=== PATIENT | male | born 1950 | race African-American/Black ===

== ENCOUNTER 2021-06-18 23:17 | Inpatient (IN) | payer MEDICARE, MEDICAID ==
[~2021-06-18] VITALS: Ht 193 cm; Wt 72.1 kg
[~2021-06-18 23:17] MED LIST: ASPI-1450 PO; CHOL100018 PO; DOXA2TAB PO; DULO30CA89 PO; RISP3TAB35 PO; TIZA4TAB6 PO
[2021-06-18] MEDS ORDERED: ARIP2TAB27 PO (23:38)
[2021-06-18] MEDS ORDERED: ZOLP-280 PO (23:38)
[2021-06-19 00:19] LABS: BASOPHILS % (AUTO) 0.5 % (0.0-2.0); EOSINOPHILS % (AUTO) 1.2 % (1.0-6.0); HEMATOCRIT 40.9 % (41-53); HEMOGLOBIN 13.7 g/dL (13.5-17.5); LYMPHOCYTES # (AUTO) 1.6 K/uL (1.0-4.8); LYMPHOCYTES % (AUTO) 20.7 % (22.0-44.0); MEAN CORPUSCULAR HGB CONC 33.4 G/dL (31.0-37.0); MEAN CORPUSCULAR VOLUME 93 fL (80-100); MONOCYTES # (AUTO) 0.8 K/uL (0.1-1.0); MONOCYTES % (AUTO) 10.2 % (2.0-9.0); NEUTROPHILS # (AUTO) 5.3 K/uL (1.8-7.7); NEUTROPHILS % (AUTO) 67.4 % (40.0-70.0); PLATELET COUNT (AUTO) 340 K/uL (150-450); RED BLOOD CELL COUNT(AUTO) 4.41 MIL/uL (4.50-5.90); RED CELL DISTRIBUTION WIDTH 13.3 % (11.5-14.5)
[2021-06-19 00:26] LABS: ANION GAP 9 mmol/L (8-16); CALCIUM, TOTAL 10.6 mg/dL (8.8-10.5); CARBON DIOXIDE 34 mmol/L (22-29); CHLORIDE 105 mmol/L (98-107); CREATININE 1.19 mg/dL (0.60-1.30); GLOMERULAR FILTR. RATE CALC > 60 mL/min (>60); GLUCOSE,RANDOM 99 mg/dL (70-110); POTASSIUM 3.4 mmol/L (3.5-5.1); SODIUM SERUM 148 mmol/L (136-145); UREA NITROGEN, BLOOD 10 mg/dL (7-18)
[2021-06-19 00:33] LABS: ALANINE AMINOTRANSFERASE 16 U/L (12-78); ALBUMIN 4.2 g/dL (3.4-5.0); ALKALINE PHOSPHATASE 100 U/L (46-116); ASPARTATE AMINOTRANSFERASE 24 U/L (15-37); BILIRUBIN,TOTAL 0.3 mg/dL (0.1-1.0)
[2021-06-19] MEDS ORDERED: LORazepam 2 MG TABLET PO PRN ×2 (00:45→20:30)
[2021-06-19 00:50] LABS: AMPHET/METH SCREEN,URINE POSITIVE (NEGATIVE); BARBITURATE SCREEN, URINE NEGATIVE (NEGATIVE); BENZODIAZEPINES SCREEN,URINE NEGATIVE (NEGATIVE); CANNABINOID SCREEN,URINE POSITIVE (NEGATIVE); COCAINE SCREEN,URINE POSITIVE (NEGATIVE); METHADONE SCREEN, URINE NEGATIVE (NEGATIVE); OPIATE SCREEN,URINE NEGATIVE (NEGATIVE); PHENCYCLIDINE SCREEN,URINE NEGATIVE (NEGATIVE)
[2021-06-19 01:28] LABS: APPEARANCE,URINE CLEAR (CLEAR); GLUCOSE, URINE (UA) NEGATIVE (NEGATIVE); KETONES,URINE TRACE mg/dL (NEGATIVE); LEUKOCYTE ESTERASE ,URINE TRACE (NEGATIVE); NITRATE,URINE NEGATIVE (NEGATIVE); OCCULT BLOOD,URINE NEGATIVE (NEGATIVE); PH,URINE 5.5 (5.0-8.0); PROTEIN,URINE SEE CONFIRM (NEGATIVE)
[2021-06-19 01:35] LABS: BILIRUBIN,URINE PRELIM. POSITIVE (NEGATIVE)
[2021-06-19 01:44] LABS: SULFOSALICYLIC ACID,URINE 2+ (Negative)
[2021-06-19 01:46] LABS: BACTERIA,URINE Moderate /HPF (None Seen); RBC,URINE 0-2 /HPF (0-2)
[2021-06-19 01:46] LABS: COVID AG,FIA SOURCE NASOPHARYNGEAL
[2021-06-19 09:40] VITALS: BP 111/72
[2021-06-19] MEDS ORDERED: POTASSIUM CHLORIDE 20 MEQ ER TABLET PO ONE (12:45)
[2021-06-19] MEDS ORDERED: BACL20TA PO (12:58)
[2021-06-19] MEDS ORDERED: ARIP5TAB37 PO (12:58)
[2021-06-19] MEDS ORDERED: CHOL500013 PO (12:58)
[2021-06-19 16:30] VITALS: BP 124/65
[2021-06-19] MEDS ORDERED: PALIPERIDONE PALMITATE 234 MG/1.5 ML SYRINGE IM ONE (20:30)
[2021-06-19] MEDS ORDERED: PROMETHAZINE HCL 25 MG TABLET PO PRN (20:30)
[2021-06-19] MEDS ORDERED: MAGNESIUM HYDROXIDE SUSPENSION 30 ML UDCUP PO PRN (20:30)
[2021-06-19] MEDS ORDERED: CYANOCOBALAMIN 1,000 MCG/ML VIAL IM ONE (20:30)
[2021-06-19] MEDS ORDERED: HydrOXYzine PAMOATE 50 MG CAPSULE PO PRN (20:30)
[2021-06-19] MEDS ORDERED: TUBERCULIN, PURIFIED PROTEIN DERIVATIVE 5 TU/0.1 ML SYRINGE ID ONE (20:30)
[2021-06-19] MEDS ORDERED: OLANZapine 5 MG RAPDIS TABLET PO PRN (20:30)
[2021-06-19] MEDS ORDERED: MAG HYDROX/AL HYDROX/SIMETH ES 30 ML SUSPENSION UDCUP PO PRN (20:30)
[2021-06-19] MEDS ORDERED: LOPERAMIDE HCL 2 MG CAPSULE PO PRN ×2 (20:30)
[2021-06-19 21:00] VITALS: BP 120/70
[2021-06-19] MEDS: OLANZapine 5 MG RAPDIS TABLET PO SCH (21:00)
[2021-06-19] MEDS ORDERED: DIVALPROEX SODIUM 500 MG ER TABLET PO SCH (21:00)
[2021-06-19] MEDS: MELATONIN 5 MG TABLET PO SCH (21:00)
[2021-06-19] MEDS: GABAPENTIN 100 MG CAPSULE PO SCH (21:00)
[2021-06-20] VITALS (9 sets, daily range): BP systolic 104–118; BP diastolic 57–80
[2021-06-20] MEDS ORDERED: LORazepam 2 MG TABLET PO PRN (07:00)
[2021-06-20 08:05] LABS: HEMOGLOBIN A1C 5.7 % (3.8-5.6)
[2021-06-20 08:10] LABS: ALANINE AMINOTRANSFERASE 17 U/L (12-78); ALBUMIN 3.6 g/dL (3.4-5.0); ALKALINE PHOSPHATASE 91 U/L (46-116); ANION GAP 8 mmol/L (8-16); ASPARTATE AMINOTRANSFERASE 18 U/L (15-37); BILIRUBIN,TOTAL 0.4 mg/dL (0.1-1.0); CALCIUM, TOTAL 8.6 mg/dL (8.8-10.5); CARBON DIOXIDE 30 mmol/L (22-29); CHLORIDE 106 mmol/L (98-107); CHOLESTEROL 147 mg/dL (131-200); CREATININE 0.89 mg/dL (0.60-1.30); FREE T4 (FREE THYROXINE) 0.87 ng/dL (0.76-1.46); GLOMERULAR FILTR. RATE CALC > 60 mL/min (>60); GLUCOSE,RANDOM 105 mg/dL (70-110); HDL CHOLESTEROL 37 mg/dL (40-60); LDL CHOL (CALC.) 97 mg/dL (0-130); POTASSIUM 3.9 mmol/L (3.5-5.1); SODIUM SERUM 144 mmol/L (136-145); THYROID STIMULATING HORMONE 0.62 uIU/mL (0.36-3.74); TOTAL PROTEIN, SERUM 6.4 g/dL (6.4-8.2); TRIGLYCERIDES 64 mg/dL (15-150); UREA NITROGEN, BLOOD 11 mg/dL (7-18)
[2021-06-20] MEDS: NALTREXONE HCL 50 MG TABLET PO SCH (09:33)
[2021-06-20] MEDS: MULTIVITAMINS WITH MINERALS, THERAPEUTIC TABLET PO SCH (09:33)
[2021-06-20] MEDS: OMEGA-3/DHA/EPA/FISH OIL 1,000 MG CAPSULE PO SCH (09:33)
[2021-06-20] MEDS: LORazepam 2 MG TABLET PO SCH ×4 (09:34→20:05)
[2021-06-20] MEDS: FOLIC ACID 1 MG TABLET PO SCH (09:35)
[2021-06-20] MEDS: GABAPENTIN 100 MG CAPSULE PO SCH ×4 (09:35→20:05)
[2021-06-20] MEDS: THIAMINE 100 MG TABLET PO SCH ×2 (09:35→17:03)
[2021-06-20] MEDS: DULoxetine HCL 20 MG CAPSULE PO SCH (09:35)
[2021-06-20] MEDS: OLANZapine 5 MG RAPDIS TABLET PO SCH (20:05)
[2021-06-20] MEDS: MELATONIN 5 MG TABLET PO SCH (20:05)
[2021-06-21 00:18] VITALS: BP 107/59
[2021-06-21 06:41] LABS: MAGNESIUM 1.9 mg/dL (1.80-2.40); PHOSPHORUS 3.5 mg/dL (2.5-4.9)
[2021-06-21] MEDS: THIAMINE 100 MG TABLET PO SCH ×2 (09:04→16:58)
[2021-06-21] MEDS: LORazepam 2 MG TABLET PO SCH ×4 (09:04→21:03)
[2021-06-21] MEDS: OMEGA-3/DHA/EPA/FISH OIL 1,000 MG CAPSULE PO SCH (09:04)
[2021-06-21] MEDS: MULTIVITAMINS WITH MINERALS, THERAPEUTIC TABLET PO SCH (09:05)
[2021-06-21] MEDS: NALTREXONE HCL 50 MG TABLET PO SCH (09:05)
[2021-06-21] MEDS: FOLIC ACID 1 MG TABLET PO SCH (09:05)
[2021-06-21] MEDS: DULoxetine HCL 20 MG CAPSULE PO SCH (09:06)
[2021-06-21] MEDS: GABAPENTIN 100 MG CAPSULE PO SCH ×4 (09:07→21:03)
[2021-06-21] MEDS ORDERED: PALIPERIDONE PALMITATE 156 MG/ML SYRINGE IM ONE (10:30)
[2021-06-21 16:00] VITALS: BP 112/61
[2021-06-21] MEDS: MELATONIN 5 MG TABLET PO SCH (21:03)
[2021-06-21] MEDS: OLANZapine 5 MG RAPDIS TABLET PO SCH (21:03)
[2021-06-22 03:25] VITALS: BP 124/74
[2021-06-22] MEDS ORDERED: LORazepam 1 MG TABLET PO PRN (07:00)
[2021-06-22 08:40] VITALS: BP 118/72
[2021-06-22] MEDS ORDERED: DULoxetine HCL 30 MG CAPSULE PO SCH (09:00)
[2021-06-22] MEDS: GABAPENTIN 100 MG CAPSULE PO SCH ×4 (09:56→21:00)
[2021-06-22] MEDS: NALTREXONE HCL 50 MG TABLET PO SCH (09:56)
[2021-06-22] MEDS: OMEGA-3/DHA/EPA/FISH OIL 1,000 MG CAPSULE PO SCH (09:56)
[2021-06-22] MEDS: MULTIVITAMINS WITH MINERALS, THERAPEUTIC TABLET PO SCH (09:57)
[2021-06-22] MEDS: DULoxetine HCL 20 MG CAPSULE PO SCH (09:57)
[2021-06-22] MEDS: THIAMINE 100 MG TABLET PO SCH ×2 (09:57→17:20)
[2021-06-22] MEDS: LORazepam 1 MG TABLET PO SCH ×4 (09:57→21:00)
[2021-06-22] MEDS: FOLIC ACID 1 MG TABLET PO SCH (09:58)
[2021-06-22 16:38] VITALS: BP 112/69
[2021-06-22 16:39] VITALS: BP 112/69
[2021-06-22] MEDS: OLANZapine 5 MG RAPDIS TABLET PO SCH (21:00)
[2021-06-22] MEDS: MELATONIN 5 MG TABLET PO SCH (21:00)
[2021-06-23 01:56] VITALS: BP 142/82
[2021-06-23 08:00] VITALS: BP 116/67
[2021-06-23] MEDS: OMEGA-3/DHA/EPA/FISH OIL 1,000 MG CAPSULE PO SCH (08:08)
[2021-06-23] MEDS: MULTIVITAMINS WITH MINERALS, THERAPEUTIC TABLET PO SCH (08:08)
[2021-06-23] MEDS: GABAPENTIN 100 MG CAPSULE PO SCH ×4 (08:08→20:32)
[2021-06-23] MEDS: NALTREXONE HCL 50 MG TABLET PO SCH (08:08)
[2021-06-23] MEDS: LORazepam 1 MG TABLET PO PRN ×2 (08:09→12:51)
[2021-06-23] MEDS: THIAMINE 100 MG TABLET PO SCH ×2 (08:13→16:32)
[2021-06-23] MEDS: DULoxetine HCL 20 MG CAPSULE PO SCH (08:13)
[2021-06-23] MEDS: FOLIC ACID 1 MG TABLET PO SCH (08:13)
[2021-06-23] MEDS ORDERED: PALIPERIDONE PALMITATE 156 MG/ML SYRINGE IM ONE (09:00)
[2021-06-23] MEDS: NICOTINE 21 MG/24 HOUR PATCH TD PRN (14:18)
[2021-06-23 16:00] VITALS: BP 123/73
[2021-06-23] MEDS: OLANZapine 5 MG RAPDIS TABLET PO SCH (20:32)
[2021-06-23] MEDS: MELATONIN 5 MG TABLET PO SCH (20:32)
[2021-06-23] MEDS: ZOLPIDEM TARTRATE 10 MG TABLET PO PRN (23:09)
[2021-06-24 04:08] VITALS: BP 106/78
[2021-06-24] MEDS: ACETAMINOPHEN 325 MG TABLET PO PRN (04:11)
[2021-06-24] MEDS: OMEGA-3/DHA/EPA/FISH OIL 1,000 MG CAPSULE PO SCH (07:57)
[2021-06-24] MEDS: DULoxetine HCL 20 MG CAPSULE PO SCH (07:57)
[2021-06-24] MEDS: FOLIC ACID 1 MG TABLET PO SCH (07:57)
[2021-06-24] MEDS: NALTREXONE HCL 50 MG TABLET PO SCH (07:57)
[2021-06-24] MEDS: THIAMINE 100 MG TABLET PO SCH ×2 (07:57→16:14)
[2021-06-24] MEDS: GABAPENTIN 100 MG CAPSULE PO SCH ×4 (07:57→20:06)
[2021-06-24] MEDS: MULTIVITAMINS WITH MINERALS, THERAPEUTIC TABLET PO SCH (07:57)
[2021-06-24 08:00] VITALS: BP 113/76
[2021-06-24] MEDS: NICOTINE 21 MG/24 HOUR PATCH TD PRN (16:15)
[2021-06-24 16:30] VITALS: BP 107/67
[2021-06-24] MEDS: OLANZapine 5 MG RAPDIS TABLET PO SCH (20:05)
[2021-06-24] MEDS: MELATONIN 5 MG TABLET PO SCH (20:06)
[2021-06-24] MEDS: ZOLPIDEM TARTRATE 10 MG TABLET PO PRN (20:44)
[2021-06-25] MEDS: ACETAMINOPHEN 325 MG TABLET PO PRN ×2 (00:48→06:20)
[2021-06-25 00:49] VITALS: BP 112/63
[2021-06-25] MEDS: DULoxetine HCL 20 MG CAPSULE PO SCH (08:40)
[2021-06-25] MEDS: FOLIC ACID 1 MG TABLET PO SCH (08:40)
[2021-06-25] MEDS: MULTIVITAMINS WITH MINERALS, THERAPEUTIC TABLET PO SCH (08:40)
[2021-06-25] MEDS: GABAPENTIN 100 MG CAPSULE PO SCH ×3 (08:41→16:39)
[2021-06-25] MEDS: OMEGA-3/DHA/EPA/FISH OIL 1,000 MG CAPSULE PO SCH (08:41)
[2021-06-25] MEDS: THIAMINE 100 MG TABLET PO SCH ×2 (08:41→16:40)
[2021-06-25] MEDS: NALTREXONE HCL 50 MG TABLET PO SCH (08:41)
[2021-06-25] MEDS ORDERED: PALIPERIDONE PALMITATE 117 MG/0.75 ML SYRINGE IM ONE (09:00)
[2021-06-25] MEDS: IBUPROFEN 600 MG TABLET PO PRN (14:50)
[2021-06-25 14:51] VITALS: BP 117/74
[2021-06-25] MEDS: GuaiFENesin/D-METHORPHAN [SUGAR-FREE] 200-20MG/10 ML SYRUP UDCUP PO PRN ×2 (14:51→20:10)
[2021-06-25 15:01] LABS: COVID AG,FIA SOURCE NASOPHARYNGEAL
[2021-06-25 16:00] VITALS: BP 117/74
[2021-06-25] MEDS: NICOTINE 21 MG/24 HOUR PATCH TD PRN (16:53)
[2021-06-25] MEDS: MELATONIN 5 MG TABLET PO SCH (20:10)
[2021-06-25] MEDS: OLANZapine 10 MG RAPDIS TABLET PO SCH (20:10)
[2021-06-25] MEDS: GABAPENTIN 300 MG CAPSULE PO SCH (20:10)
[2021-06-26 03:40] VITALS: BP 110/71
[2021-06-26] MEDS: IBUPROFEN 600 MG TABLET PO PRN ×2 (03:44→16:32)
[2021-06-26] MEDS: GuaiFENesin/D-METHORPHAN [SUGAR-FREE] 200-20MG/10 ML SYRUP UDCUP PO PRN ×2 (03:44→16:32)
[2021-06-26 08:00] VITALS: BP 117/62
[2021-06-26] MEDS: FOLIC ACID 1 MG TABLET PO SCH (08:31)
[2021-06-26] MEDS: MULTIVITAMINS WITH MINERALS, THERAPEUTIC TABLET PO SCH (08:31)
[2021-06-26] MEDS: OLANZapine 5 MG RAPDIS TABLET PO PRN ×2 (08:31→12:48)
[2021-06-26] MEDS: OMEGA-3/DHA/EPA/FISH OIL 1,000 MG CAPSULE PO SCH (08:31)
[2021-06-26] MEDS: THIAMINE 100 MG TABLET PO SCH ×2 (08:31→16:52)
[2021-06-26] MEDS: GABAPENTIN 300 MG CAPSULE PO SCH ×4 (08:31→20:44)
[2021-06-26] MEDS: DULoxetine HCL 30 MG CAPSULE PO SCH (08:31)
[2021-06-26] MEDS: NALTREXONE HCL 50 MG TABLET PO SCH (08:31)
[2021-06-26] MEDS: TAMSULOSIN HCL 0.4 MG CAPSULE PO SCH (12:47)
[2021-06-26 16:32] VITALS: BP 113/71
[2021-06-26] MEDS: NICOTINE 21 MG/24 HOUR PATCH TD PRN (16:32)
[2021-06-26 16:41] VITALS: BP 69/71
[2021-06-26] MEDS: MELATONIN 5 MG TABLET PO SCH (20:44)
[2021-06-26] MEDS: OLANZapine 10 MG RAPDIS TABLET PO SCH (20:44)
[2021-06-27] MEDS: ZOLPIDEM TARTRATE 10 MG TABLET PO PRN (02:23)
[2021-06-27] MEDS: GuaiFENesin/D-METHORPHAN [SUGAR-FREE] 200-20MG/10 ML SYRUP UDCUP PO PRN ×4 (02:23→22:31)
[2021-06-27 02:29] VITALS: BP 126/74
[2021-06-27 06:40] VITALS: BP 122/88
[2021-06-27] MEDS: IBUPROFEN 600 MG TABLET PO PRN ×2 (06:42→13:19)
[2021-06-27] MEDS: GABAPENTIN 300 MG CAPSULE PO SCH ×4 (08:17→20:11)
[2021-06-27] MEDS: OMEGA-3/DHA/EPA/FISH OIL 1,000 MG CAPSULE PO SCH (08:17)
[2021-06-27] MEDS: THIAMINE 100 MG TABLET PO SCH ×2 (08:17→16:19)
[2021-06-27] MEDS: MULTIVITAMINS WITH MINERALS, THERAPEUTIC TABLET PO SCH (08:17)
[2021-06-27] MEDS: DULoxetine HCL 30 MG CAPSULE PO SCH (08:17)
[2021-06-27] MEDS: NALTREXONE HCL 50 MG TABLET PO SCH (08:17)
[2021-06-27] MEDS: FOLIC ACID 1 MG TABLET PO SCH (08:17)
[2021-06-27] MEDS: TAMSULOSIN HCL 0.4 MG CAPSULE PO SCH (08:17)
[2021-06-27] MEDS: OLANZapine 5 MG RAPDIS TABLET PO PRN ×2 (08:18→13:19)
[2021-06-27 08:53] VITALS: BP 113/85
[2021-06-27] MEDS: NICOTINE 21 MG/24 HOUR PATCH TD PRN (17:05)
[2021-06-27 17:18] VITALS: BP 114/65
[2021-06-27] MEDS: MELATONIN 5 MG TABLET PO SCH (20:11)
[2021-06-27] MEDS: OLANZapine 10 MG RAPDIS TABLET PO SCH (20:12)
[2021-06-27] MEDS: GABAPENTIN 400 MG CAPSULE PO SCH (21:00)
[2021-06-28] MEDS: IBUPROFEN 600 MG TABLET PO PRN ×3 (02:02→22:45)
[2021-06-28 02:03] VITALS: BP 122/63
[2021-06-28] MEDS: ZOLPIDEM TARTRATE 10 MG TABLET PO PRN (02:20)
[2021-06-28] MEDS: GABAPENTIN 400 MG CAPSULE PO SCH ×4 (09:55→21:42)
[2021-06-28] MEDS: DULoxetine HCL 20 MG CAPSULE PO SCH (09:55)
[2021-06-28] MEDS: FOLIC ACID 1 MG TABLET PO SCH (09:55)
[2021-06-28] MEDS: NALTREXONE HCL 50 MG TABLET PO SCH (09:55)
[2021-06-28] MEDS: OMEGA-3/DHA/EPA/FISH OIL 1,000 MG CAPSULE PO SCH (09:55)
[2021-06-28] MEDS: THIAMINE 100 MG TABLET PO SCH ×2 (09:55→17:40)
[2021-06-28] MEDS: MULTIVITAMINS WITH MINERALS, THERAPEUTIC TABLET PO SCH (09:55)
[2021-06-28] MEDS: TAMSULOSIN HCL 0.4 MG CAPSULE PO SCH (09:55)
[2021-06-28 10:14] VITALS: BP 121/55
[2021-06-28] MEDS: GuaiFENesin/D-METHORPHAN [SUGAR-FREE] 200-20MG/10 ML SYRUP UDCUP PO PRN ×2 (12:00→22:45)
[2021-06-28] MEDS: OLANZapine 5 MG RAPDIS TABLET PO PRN (12:01)
[2021-06-28 16:22] VITALS: BP 126/81
[2021-06-28] MEDS: NICOTINE 21 MG/24 HOUR PATCH TD PRN (18:03)
[2021-06-28] MEDS: OLANZapine 10 MG RAPDIS TABLET PO SCH (21:43)
[2021-06-28] MEDS: MELATONIN 5 MG TABLET PO SCH (21:43)
[2021-06-29 05:39] VITALS: BP 132/70
[2021-06-29] MEDS: FOLIC ACID 1 MG TABLET PO SCH (08:31)
[2021-06-29] MEDS: THIAMINE 100 MG TABLET PO SCH ×2 (08:31→15:51)
[2021-06-29] MEDS: DULoxetine HCL 20 MG CAPSULE PO SCH (08:32)
[2021-06-29] MEDS: OMEGA-3/DHA/EPA/FISH OIL 1,000 MG CAPSULE PO SCH (08:32)
[2021-06-29] MEDS: GABAPENTIN 400 MG CAPSULE PO SCH ×4 (08:32→20:19)
[2021-06-29] MEDS: TAMSULOSIN HCL 0.4 MG CAPSULE PO SCH (08:32)
[2021-06-29] MEDS: MULTIVITAMINS WITH MINERALS, THERAPEUTIC TABLET PO SCH (08:32)
[2021-06-29] MEDS: NALTREXONE HCL 50 MG TABLET PO SCH (08:32)
[2021-06-29 09:12] VITALS: BP 115/73
[2021-06-29] MEDS: GuaiFENesin/D-METHORPHAN [SUGAR-FREE] 200-20MG/10 ML SYRUP UDCUP PO PRN ×2 (09:14→15:59)
[2021-06-29] MEDS: OLANZapine 5 MG RAPDIS TABLET PO PRN (09:15)
[2021-06-29] MEDS: IBUPROFEN 600 MG TABLET PO PRN ×2 (09:15→15:59)
[2021-06-29 15:59] VITALS: BP 130/76
[2021-06-29 16:00] VITALS: BP 130/76
[2021-06-29] MEDS: OLANZapine 5 MG RAPDIS TABLET PO SCH (20:19)
[2021-06-29] MEDS: MELATONIN 5 MG TABLET PO SCH (20:19)
[2021-06-30 05:44] VITALS: BP_SYST 124
[2021-06-30] MEDS: GuaiFENesin/D-METHORPHAN [SUGAR-FREE] 200-20MG/10 ML SYRUP UDCUP PO PRN ×2 (05:44→13:12)
[2021-06-30] MEDS: IBUPROFEN 600 MG TABLET PO PRN (05:44)
[2021-06-30 08:40] VITALS: BP 113/61
[2021-06-30] MEDS: TAMSULOSIN HCL 0.4 MG CAPSULE PO SCH (09:16)
[2021-06-30] MEDS: OMEGA-3/DHA/EPA/FISH OIL 1,000 MG CAPSULE PO SCH (09:16)
[2021-06-30] MEDS: DULoxetine HCL 20 MG CAPSULE PO SCH (09:16)
[2021-06-30] MEDS: MULTIVITAMINS WITH MINERALS, THERAPEUTIC TABLET PO SCH (09:16)
[2021-06-30] MEDS: GABAPENTIN 400 MG CAPSULE PO SCH ×4 (09:16→20:16)
[2021-06-30] MEDS: NALTREXONE HCL 50 MG TABLET PO SCH (09:17)
[2021-06-30 16:00] VITALS: BP 134/70
[2021-06-30] MEDS: OLANZapine 5 MG RAPDIS TABLET PO SCH (20:16)
[2021-06-30] MEDS: MELATONIN 5 MG TABLET PO SCH (20:16)
[2021-07-01 02:19] VITALS: BP 132/76
[2021-07-01] MEDS: ZOLPIDEM TARTRATE 10 MG TABLET PO PRN (02:20)
[2021-07-01] MEDS: IBUPROFEN 600 MG TABLET PO PRN (02:21)
[2021-07-01] MEDS: NALTREXONE HCL 50 MG TABLET PO SCH (08:01)
[2021-07-01] MEDS: DULoxetine HCL 20 MG CAPSULE PO SCH (08:01)
[2021-07-01] MEDS: GABAPENTIN 400 MG CAPSULE PO SCH ×4 (08:01→20:15)
[2021-07-01] MEDS: MULTIVITAMINS WITH MINERALS, THERAPEUTIC TABLET PO SCH (08:01)
[2021-07-01] MEDS: OMEGA-3/DHA/EPA/FISH OIL 1,000 MG CAPSULE PO SCH (08:01)
[2021-07-01] MEDS: TAMSULOSIN HCL 0.4 MG CAPSULE PO SCH (08:01)
[2021-07-01 08:50] VITALS: BP 109/79
[2021-07-01] MEDS: ACETAMINOPHEN 325 MG TABLET PO PRN (09:13)
[2021-07-01] MEDS: NICOTINE 21 MG/24 HOUR PATCH TD PRN (12:07)
[2021-07-01 16:00] VITALS: BP 127/89
[2021-07-01] MEDS: OLANZapine 5 MG RAPDIS TABLET PO SCH (20:15)
[2021-07-01] MEDS: MELATONIN 5 MG TABLET PO SCH (20:15)
[2021-07-02 02:34] VITALS: BP 102/64
[2021-07-02] MEDS: IBUPROFEN 600 MG TABLET PO PRN (02:36)
[2021-07-02] MEDS: GuaiFENesin/D-METHORPHAN [SUGAR-FREE] 200-20MG/10 ML SYRUP UDCUP PO PRN ×2 (02:37→10:58)
[2021-07-02] MEDS: ZOLPIDEM TARTRATE 10 MG TABLET PO PRN (03:18)
[2021-07-02] MEDS: MULTIVITAMINS WITH MINERALS, THERAPEUTIC TABLET PO SCH (08:21)
[2021-07-02] MEDS: DULoxetine HCL 20 MG CAPSULE PO SCH (08:21)
[2021-07-02] MEDS: TAMSULOSIN HCL 0.4 MG CAPSULE PO SCH (08:21)
[2021-07-02] MEDS: OMEGA-3/DHA/EPA/FISH OIL 1,000 MG CAPSULE PO SCH (08:21)
[2021-07-02] MEDS: GABAPENTIN 400 MG CAPSULE PO SCH ×2 (08:21→12:40)
[2021-07-02] MEDS: NALTREXONE HCL 50 MG TABLET PO SCH (08:21)
[2021-07-02 08:33] VITALS: BP 138/88
[2021-07-02] MEDS ORDERED: GABA-1201 PO (11:54)
[2021-07-02] MEDS ORDERED: OLAN5TAB94 PO (11:54)
[2021-07-02] MEDS ORDERED: MELA5TAB40 PO (11:54)
[2021-07-02] MEDS ORDERED: OMEG-135 PO (11:54)
[2021-07-02] MEDS ORDERED: DULO20CA27 PO (11:54)
[2021-07-02] MEDS ORDERED: NALT50TA PO (11:54)
[2021-07-02] MEDS ORDERED: TAMS-13 PO (12:03)
== END 2021-07-02 14:30 | disposition home or self-care (01) | DRG 885 ==
LOC: EMS 23:25 → 3EI 06-19 08:09
PROVIDERS: ADMIT Psychiatry & Neurology Psychiatry; ATTEND Psychiatry & Neurology Psychiatry
DX: F25.9 Schizoaffective disorder, unspecified (principal); N39.0 Urinary tract infection, site not specified; R45.851 Suicidal ideations; F12.90 Cannabis use, unspecified, uncomplicated; F14.90 Cocaine use, unspecified, uncomplicated; F32.A Depression, unspecified; J44.9 Chronic obstructive pulmonary disease, unspecified; Z20.822 Contact with and (suspected) exposure to COVID-19; M47.812 Spondylosis without myelopathy or radiculopathy, cervical region; R45.850 Homicidal ideations; N40.0 Benign prostatic hyperplasia without lower urinary tract symptoms; Z55.9 Problems related to education and literacy, unspecified; Z59.00 Homelessness unspecified; Z87.891 Personal history of nicotine dependence; Z91.19 Patient's noncompliance with other medical treatment and regimen; Z85.46 Personal history of malignant neoplasm of prostate; Z65.3 Problems related to other legal circumstances
CPT/HCPCS: 71045; 71046; 80053; 80061; 81001; 81002; 83036; 83735; 84100; 84439; 84443; 84484; 85025; 85305; 85306; 86592; 87086; 93005; 99285; G0480; Q9967; 36415-L1; 36415-TC

== ENCOUNTER 2021-07-18 21:11 | Inpatient (IN) | payer MEDICARE, MEDICAID ==
[~2021-07-18] VITALS: Ht 190.5 cm; Wt 76.3 kg
[~2021-07-18 21:11] MED LIST changes: -ASPI-1450 PO; -CHOL100018 PO; -DOXA2TAB PO; +DULO20CA27 PO; -DULO30CA89 PO; +GABA-1201 PO; +MELA5TAB40 PO; +NALT50TA PO; +OLAN5TAB94 PO; +OMEG-135 PO; -RISP3TAB35 PO; +TAMS-13 PO; -TIZA4TAB6 PO
[2021-07-18] MEDS ORDERED: CloNIDine HCL 0.1 MG TABLET PO ONE (23:30)
[2021-07-18] MEDS ORDERED: IBUPROFEN 800 MG TABLET PO ONE (23:30)
[2021-07-18 23:43] LABS: BASOPHILS % (AUTO) 0.3 % (0.0-2.0); EOSINOPHILS % (AUTO) 0.5 % (1.0-6.0); HEMATOCRIT 39.2 % (41-53); HEMOGLOBIN 12.8 g/dL (13.5-17.5); LYMPHOCYTES # (AUTO) 1.3 K/uL (1.0-4.8); LYMPHOCYTES % (AUTO) 15.9 % (22.0-44.0); MEAN CORPUSCULAR HEMOGLOBIN 30.6 pg (26.0-34.0); MEAN CORPUSCULAR HGB CONC 32.8 G/dL (31.0-37.0); MEAN CORPUSCULAR VOLUME 93 fL (80-100); MONOCYTES # (AUTO) 0.7 K/uL (0.1-1.0); MONOCYTES % (AUTO) 9.1 % (2.0-9.0); NEUTROPHILS % (AUTO) 74.2 % (40.0-70.0); PLATELET COUNT (AUTO) 298 K/uL (150-450); RED BLOOD CELL COUNT(AUTO) 4.21 MIL/uL (4.50-5.90); RED CELL DISTRIBUTION WIDTH 13.6 % (11.5-14.5)
[2021-07-18 23:46] LABS: COVID AG,FIA SOURCE NASOPHARYNGEAL
[2021-07-18 23:51] LABS: ANION GAP 5 mmol/L (8-16); CALCIUM, TOTAL 8.8 mg/dL (8.8-10.5); CARBON DIOXIDE 32 mmol/L (22-29); CHLORIDE 105 mmol/L (98-107); CREATININE 0.95 mg/dL (0.60-1.30); GLOMERULAR FILTR. RATE CALC > 60 mL/min (>60); GLUCOSE,RANDOM 83 mg/dL (70-110); POTASSIUM 3.7 mmol/L (3.5-5.1); SODIUM SERUM 142 mmol/L (136-145); UREA NITROGEN, BLOOD 15 mg/dL (7-18)
[2021-07-18 23:57] LABS: ALANINE AMINOTRANSFERASE 26 U/L (12-78); ALBUMIN 4.1 g/dL (3.4-5.0); ALKALINE PHOSPHATASE 90 U/L (46-116); ASPARTATE AMINOTRANSFERASE 28 U/L (15-37); BILIRUBIN,TOTAL 0.4 mg/dL (0.1-1.0)
[2021-07-19 03:25] LABS: CHOL/HDL RATIO 3.4 (4.2-7.3); CHOLESTEROL 169 mg/dL (131-200); HDL CHOLESTEROL 50 mg/dL (40-60); LDL CHOL (CALC.) 110 mg/dL (0-130); TRIGLYCERIDES 43 mg/dL (15-150)
[2021-07-19 04:47] VITALS: BP 128/83
[2021-07-19 08:00] VITALS: BP 151/60
[2021-07-19] MEDS ORDERED: TAMSULOSIN HCL 0.4 MG CAPSULE PO SCH (09:00)
[2021-07-19] MEDS ORDERED: MAGNESIUM HYDROXIDE SUSPENSION 30 ML UDCUP PO PRN (09:45)
[2021-07-19] MEDS ORDERED: CloNIDine HCL 0.1 MG TABLET PO PRN (09:45)
[2021-07-19] MEDS ORDERED: OMEPRAZOLE 20 MG CAPSULE PO PRN (09:45)
[2021-07-19] MEDS ORDERED: PETROLATUM,WHITE 28 GM JELLY TP PRN (09:45)
[2021-07-19] MEDS ORDERED: DOCUSATE SODIUM 100 MG CAPSULE PO PRN (09:45)
[2021-07-19] MEDS ORDERED: ACETAMINOPHEN 325 MG TABLET PO PRN (09:45)
[2021-07-19] MEDS ORDERED: BENZOCAINE/MENTHOL LOZENGE PO PRN (09:45)
[2021-07-19] MEDS ORDERED: MAG HYDROX/AL HYDROX/SIMETH ES 30 ML SUSPENSION UDCUP PO PRN (09:45)
[2021-07-19] MEDS ORDERED: LOPERAMIDE HCL 2 MG CAPSULE PO PRN (09:45)
[2021-07-19] MEDS ORDERED: BACITRACIN 28 GM OINTMENT TP PRN (09:45)
[2021-07-19] MEDS ORDERED: ONDANSETRON HCL 4 MG TABLET PO PRN (09:45)
[2021-07-19] MEDS: LORazepam 2 MG TABLET PO PRN (11:16)
[2021-07-19] MEDS: NICOTINE 21 MG/24 HOUR PATCH TD SCH (11:21)
[2021-07-19] MEDS: DULoxetine HCL 60 MG CAPSULE PO SCH (11:22)
[2021-07-19] MEDS ORDERED: NICOTINE 21 MG/24 HOUR PATCH TD SCH (11:30)
[2021-07-19] MEDS ORDERED: PNEUMOCOCCAL VACCINE POLYVALENT 0.5 ML VIAL [PPSV23] IM. ONE (15:00)
[2021-07-19] MEDS ORDERED: INFLUENZA VIRUS VACCINE QVS 2021-22 (6MO+)/PF 60 MCG/0.5 ML SYRINGE IM. ONE (15:00)
[2021-07-19 16:20] VITALS: BP 128/71
[2021-07-19] MEDS: MELATONIN 5 MG TABLET PO SCH (20:02)
[2021-07-20 08:00] VITALS: BP_SYST 75
[2021-07-20] MEDS: NICOTINE 21 MG/24 HOUR PATCH TD SCH (09:29)
[2021-07-20] MEDS: MULTIVITAMINS WITH MINERALS, THERAPEUTIC TABLET PO SCH (09:30)
[2021-07-20] MEDS: DULoxetine HCL 60 MG CAPSULE PO SCH (09:30)
[2021-07-20] MEDS: OMEGA-3/DHA/EPA/FISH OIL 1,000 MG CAPSULE PO SCH (09:30)
[2021-07-20] MEDS: TAMSULOSIN HCL 0.4 MG CAPSULE PO SCH (09:30)
[2021-07-20] MEDS: LORazepam 2 MG TABLET PO PRN (10:23)
[2021-07-20 16:30] VITALS: BP 131/77
[2021-07-20] MEDS: MELATONIN 5 MG TABLET PO SCH (21:01)
[2021-07-20] MEDS: ZOLPIDEM TARTRATE 10 MG TABLET PO PRN (23:07)
[2021-07-21] MEDS: MULTIVITAMINS WITH MINERALS, THERAPEUTIC TABLET PO SCH (08:09)
[2021-07-21] MEDS: NICOTINE 21 MG/24 HOUR PATCH TD SCH (08:09)
[2021-07-21] MEDS: OMEGA-3/DHA/EPA/FISH OIL 1,000 MG CAPSULE PO SCH (08:09)
[2021-07-21] MEDS: TAMSULOSIN HCL 0.4 MG CAPSULE PO SCH (08:09)
[2021-07-21] MEDS: DULoxetine HCL 60 MG CAPSULE PO SCH (08:09)
[2021-07-21] MEDS: LORazepam 2 MG TABLET PO PRN ×2 (08:10→15:21)
[2021-07-21 09:09] VITALS: BP 138/85
[2021-07-21 17:03] VITALS: BP 136/77
[2021-07-21] MEDS: MELATONIN 5 MG TABLET PO SCH (20:00)
[2021-07-21] MEDS: ZOLPIDEM TARTRATE 10 MG TABLET PO PRN (20:50)
[2021-07-22] MEDS: LORazepam 2 MG TABLET PO PRN ×3 (00:25→12:21)
[2021-07-22] MEDS: HALOPERIDOL 5 MG TABLET PO PRN (00:25)
[2021-07-22 00:29] VITALS: BP 124/71
[2021-07-22] MEDS: DULoxetine HCL 60 MG CAPSULE PO SCH (08:16)
[2021-07-22] MEDS: TAMSULOSIN HCL 0.4 MG CAPSULE PO SCH (08:16)
[2021-07-22] MEDS: MULTIVITAMINS WITH MINERALS, THERAPEUTIC TABLET PO SCH (08:16)
[2021-07-22] MEDS: OMEGA-3/DHA/EPA/FISH OIL 1,000 MG CAPSULE PO SCH (08:16)
[2021-07-22] MEDS: NICOTINE 21 MG/24 HOUR PATCH TD SCH (08:17)
[2021-07-22 10:46] VITALS: BP 122/73
[2021-07-22 16:56] VITALS: BP 128/75
[2021-07-22] MEDS: MELATONIN 5 MG TABLET PO SCH (20:26)
[2021-07-22] MEDS: ZOLPIDEM TARTRATE 10 MG TABLET PO PRN (22:48)
[2021-07-23] MEDS: LORazepam 2 MG TABLET PO PRN ×3 (05:45→15:48)
[2021-07-23 05:46] VITALS: BP 123/85
[2021-07-23] MEDS: TAMSULOSIN HCL 0.4 MG CAPSULE PO SCH (08:07)
[2021-07-23] MEDS: NICOTINE 21 MG/24 HOUR PATCH TD SCH (08:07)
[2021-07-23] MEDS: MULTIVITAMINS WITH MINERALS, THERAPEUTIC TABLET PO SCH (08:07)
[2021-07-23] MEDS: OMEGA-3/DHA/EPA/FISH OIL 1,000 MG CAPSULE PO SCH (08:07)
[2021-07-23] MEDS: DULoxetine HCL 60 MG CAPSULE PO SCH (08:07)
[2021-07-23 08:30] VITALS: BP 112/68
[2021-07-23 15:48] VITALS: BP 147/86
[2021-07-23] MEDS: IBUPROFEN 600 MG TABLET PO PRN (15:49)
[2021-07-23 16:08] VITALS: BP 147/86
[2021-07-23] MEDS: ZOLPIDEM TARTRATE 10 MG TABLET PO PRN (19:56)
[2021-07-23] MEDS: MELATONIN 5 MG TABLET PO SCH (19:57)
[2021-07-24 00:54] VITALS: BP 145/75
[2021-07-24] MEDS: HALOPERIDOL 5 MG TABLET PO PRN ×2 (00:54→14:28)
[2021-07-24] MEDS: LORazepam 2 MG TABLET PO PRN ×3 (00:54→14:28)
[2021-07-24] MEDS: IBUPROFEN 600 MG TABLET PO PRN (05:56)
[2021-07-24 05:58] VITALS: BP 135/80
[2021-07-24 08:00] VITALS: BP 129/88
[2021-07-24 09:15] LABS: COVID AG,FIA SOURCE NASOPHARYNGEAL
[2021-07-24] MEDS: MULTIVITAMINS WITH MINERALS, THERAPEUTIC TABLET PO SCH (10:51)
[2021-07-24] MEDS: DULoxetine HCL 60 MG CAPSULE PO SCH (10:51)
[2021-07-24] MEDS: OMEGA-3/DHA/EPA/FISH OIL 1,000 MG CAPSULE PO SCH (10:51)
[2021-07-24] MEDS: TAMSULOSIN HCL 0.4 MG CAPSULE PO SCH (10:51)
[2021-07-24] MEDS: NICOTINE 21 MG/24 HOUR PATCH TD SCH (10:53)
[2021-07-24 17:50] VITALS: BP 132/70
[2021-07-24] MEDS: MELATONIN 5 MG TABLET PO SCH (20:13)
[2021-07-24] MEDS: ZOLPIDEM TARTRATE 10 MG TABLET PO PRN (22:31)
[2021-07-25 01:30] VITALS: BP 111/76
[2021-07-25] MEDS: LORazepam 2 MG TABLET PO PRN ×3 (01:33→20:37)
[2021-07-25] MEDS: HALOPERIDOL 5 MG TABLET PO PRN ×2 (01:33→08:56)
[2021-07-25 08:00] VITALS: BP 102/71
[2021-07-25] MEDS: DULoxetine HCL 60 MG CAPSULE PO SCH (08:53)
[2021-07-25] MEDS: OMEGA-3/DHA/EPA/FISH OIL 1,000 MG CAPSULE PO SCH (08:53)
[2021-07-25] MEDS: TAMSULOSIN HCL 0.4 MG CAPSULE PO SCH (08:53)
[2021-07-25] MEDS: MULTIVITAMINS WITH MINERALS, THERAPEUTIC TABLET PO SCH (08:54)
[2021-07-25] MEDS: NICOTINE 21 MG/24 HOUR PATCH TD SCH (08:58)
[2021-07-25] MEDS: MELATONIN 5 MG TABLET PO SCH (20:04)
[2021-07-26 00:05] VITALS: BP 148/97
[2021-07-26] MEDS: ZOLPIDEM TARTRATE 10 MG TABLET PO PRN ×2 (00:05→21:51)
[2021-07-26] MEDS: HALOPERIDOL 5 MG TABLET PO PRN ×2 (05:10→12:20)
[2021-07-26] MEDS: MULTIVITAMINS WITH MINERALS, THERAPEUTIC TABLET PO SCH (08:27)
[2021-07-26] MEDS: OMEGA-3/DHA/EPA/FISH OIL 1,000 MG CAPSULE PO SCH (08:27)
[2021-07-26] MEDS: TAMSULOSIN HCL 0.4 MG CAPSULE PO SCH (08:27)
[2021-07-26] MEDS: DULoxetine HCL 60 MG CAPSULE PO SCH (08:27)
[2021-07-26] MEDS: NICOTINE 21 MG/24 HOUR PATCH TD SCH (08:33)
[2021-07-26 08:52] VITALS: BP 142/87
[2021-07-26 16:00] VITALS: BP 118/71
[2021-07-26] MEDS: MELATONIN 5 MG TABLET PO SCH (20:58)
[2021-07-27 01:25] VITALS: BP 123/75
[2021-07-27] MEDS: HALOPERIDOL 5 MG TABLET PO PRN ×2 (01:28→10:29)
[2021-07-27] MEDS: MULTIVITAMINS WITH MINERALS, THERAPEUTIC TABLET PO SCH (08:10)
[2021-07-27] MEDS: TAMSULOSIN HCL 0.4 MG CAPSULE PO SCH (08:10)
[2021-07-27] MEDS: DULoxetine HCL 60 MG CAPSULE PO SCH (08:10)
[2021-07-27] MEDS: OMEGA-3/DHA/EPA/FISH OIL 1,000 MG CAPSULE PO SCH (08:10)
[2021-07-27] MEDS: NICOTINE 21 MG/24 HOUR PATCH TD SCH (08:13)
[2021-07-27 10:30] VITALS: BP 144/86
[2021-07-27] MEDS: HydrOXYzine PAMOATE 25 MG CAPSULE PO SCH ×2 (12:13→16:16)
[2021-07-27] MEDS: ALBUTEROL SULFATE HFA 90 MCG/PUFF 8 GM INHALER IH PRN (15:15)
[2021-07-27 16:25] VITALS: BP 136/82
[2021-07-27] MEDS: QUEtiapine FUMARATE 100 MG TABLET PO SCH (20:06)
[2021-07-27] MEDS: MELATONIN 5 MG TABLET PO SCH (20:06)
[2021-07-28 08:00] VITALS: BP 130/91
[2021-07-28] MEDS: OMEGA-3/DHA/EPA/FISH OIL 1,000 MG CAPSULE PO SCH (08:28)
[2021-07-28] MEDS: MULTIVITAMINS WITH MINERALS, THERAPEUTIC TABLET PO SCH (08:28)
[2021-07-28] MEDS: NICOTINE 21 MG/24 HOUR PATCH TD SCH (08:28)
[2021-07-28] MEDS: ALBUTEROL SULFATE HFA 90 MCG/PUFF 8 GM INHALER IH PRN (08:28)
[2021-07-28] MEDS: TAMSULOSIN HCL 0.4 MG CAPSULE PO SCH (08:28)
[2021-07-28] MEDS: DULoxetine HCL 60 MG CAPSULE PO SCH (08:28)
[2021-07-28] MEDS: HydrOXYzine PAMOATE 25 MG CAPSULE PO SCH ×3 (08:28→16:50)
[2021-07-28 16:00] VITALS: BP 97/61
[2021-07-28] MEDS: QUEtiapine FUMARATE 100 MG TABLET PO SCH (20:24)
[2021-07-28] MEDS: MELATONIN 5 MG TABLET PO SCH (20:24)
[2021-07-29] MEDS: ZOLPIDEM TARTRATE 10 MG TABLET PO PRN (02:52)
[2021-07-29] MEDS: NICOTINE 21 MG/24 HOUR PATCH TD SCH (08:01)
[2021-07-29] MEDS: DULoxetine HCL 60 MG CAPSULE PO SCH (08:01)
[2021-07-29] MEDS: MULTIVITAMINS WITH MINERALS, THERAPEUTIC TABLET PO SCH (08:01)
[2021-07-29] MEDS: OMEGA-3/DHA/EPA/FISH OIL 1,000 MG CAPSULE PO SCH (08:01)
[2021-07-29] MEDS: HydrOXYzine PAMOATE 25 MG CAPSULE PO SCH ×2 (08:01→12:12)
[2021-07-29] MEDS: TAMSULOSIN HCL 0.4 MG CAPSULE PO SCH (08:02)
[2021-07-29] MEDS: ALBUTEROL SULFATE HFA 90 MCG/PUFF 8 GM INHALER IH PRN (08:03)
[2021-07-29 09:46] VITALS: BP 140/85
[2021-07-29] MEDS ORDERED: DULO60CA98 PO (11:25)
[2021-07-29] MEDS ORDERED: HYDR-4031 PO (11:28)
[2021-07-29] MEDS ORDERED: MELA5TAB40 PO (11:28)
[2021-07-29] MEDS ORDERED: QUET100T PO (11:28)
== END 2021-07-29 13:15 | disposition home or self-care (01) | DRG 881 ==
LOC: EMS 21:11 → 3EI 07-19 03:00
PROVIDERS: ADMIT Psychiatry & Neurology Psychiatry; ATTEND Psychiatry & Neurology Psychiatry
DX: F32.9 Major depressive disorder, single episode, unspecified (principal); R45.851 Suicidal ideations; F25.9 Schizoaffective disorder, unspecified; N40.0 Benign prostatic hyperplasia without lower urinary tract symptoms; Z20.822 Contact with and (suspected) exposure to COVID-19; Z59.00 Homelessness unspecified; Z85.46 Personal history of malignant neoplasm of prostate; F17.200 Nicotine dependence, unspecified, uncomplicated; D64.89 Other specified anemias; G47.00 Insomnia, unspecified; F41.9 Anxiety disorder, unspecified; K59.00 Constipation, unspecified; F19.10 Other psychoactive substance abuse, uncomplicated; Z71.51 Drug abuse counseling and surveillance of drug abuser; Z71.6 Tobacco abuse counseling
CPT/HCPCS: 80053; 80061; 85025; 87081; 99285; G0480; J3535; Q9967

== ENCOUNTER 2021-09-22 08:45 | Inpatient (IN) | payer MEDICARE, MEDICAID ==
[~2021-09-22] VITALS: Ht 190.5 cm; Wt 77.5 kg
[~2021-09-22 08:45] MED LIST changes: -DULO20CA27 PO; +DULO60CA98 PO; -GABA-1201 PO; +HYDR-4031 PO; -NALT50TA PO; -OLAN5TAB94 PO; +QUET100T PO
[2021-09-22 09:55] LABS: BASOPHILS % (AUTO) 0.4 % (0.0-2.0); EOSINOPHILS % (AUTO) 1.2 % (1.0-6.0); HEMATOCRIT 43.6 % (41-53); HEMOGLOBIN 14.7 g/dL (13.5-17.5); LYMPHOCYTES # (AUTO) 1.6 K/uL (1.0-4.8); LYMPHOCYTES % (AUTO) 17.8 % (22.0-44.0); MEAN CORPUSCULAR HEMOGLOBIN 30.2 pg (26.0-34.0); MEAN CORPUSCULAR HGB CONC 33.7 G/dL (31.0-37.0); MEAN CORPUSCULAR VOLUME 90 fL (80-100); MONOCYTES # (AUTO) 0.9 K/uL (0.1-1.0); MONOCYTES % (AUTO) 10.4 % (2.0-9.0); NEUTROPHILS # (AUTO) 6.2 K/uL (1.8-7.7); NEUTROPHILS % (AUTO) 70.2 % (40.0-70.0); PLATELET COUNT (AUTO) 410 K/uL (150-450); RED BLOOD CELL COUNT(AUTO) 4.86 MIL/uL (4.50-5.90); RED CELL DISTRIBUTION WIDTH 13.6 % (11.5-14.5)
[2021-09-22 09:59] LABS: COVID AG,FIA SOURCE NASOPHARYNGEAL
[2021-09-22 10:09] LABS: ANION GAP 9 mmol/L (8-16); CALCIUM, TOTAL 9.6 mg/dL (8.8-10.5); CARBON DIOXIDE 32 mmol/L (22-29); CHLORIDE 102 mmol/L (98-107); CREATININE 1.05 mg/dL (0.60-1.30); GLOMERULAR FILTR. RATE CALC > 60 mL/min (>60); GLUCOSE,RANDOM 111 mg/dL (70-110); POTASSIUM 3.8 mmol/L (3.5-5.1); SODIUM SERUM 143 mmol/L (136-145); UREA NITROGEN, BLOOD 20 mg/dL (7-18)
[2021-09-22 10:23] LABS: ALANINE AMINOTRANSFERASE 35 U/L (12-78); ALBUMIN 4.5 g/dL (3.4-5.0); ALKALINE PHOSPHATASE 97 U/L (46-116); ASPARTATE AMINOTRANSFERASE 51 U/L (15-37); BILIRUBIN,TOTAL 0.4 mg/dL (0.1-1.0); TOTAL PROTEIN, SERUM 7.9 g/dL (6.4-8.2)
[2021-09-22 17:56] LABS: AMPHET/METH SCREEN,URINE NEGATIVE (NEGATIVE); BARBITURATE SCREEN, URINE NEGATIVE (NEGATIVE); BENZODIAZEPINES SCREEN,URINE NEGATIVE (NEGATIVE); CANNABINOID SCREEN,URINE POSITIVE (NEGATIVE); COCAINE SCREEN,URINE POSITIVE (NEGATIVE); METHADONE SCREEN, URINE NEGATIVE (NEGATIVE); OPIATE SCREEN,URINE NEGATIVE (NEGATIVE); PHENCYCLIDINE SCREEN,URINE NEGATIVE (NEGATIVE)
[2021-09-22] MEDS ORDERED: HALOPERIDOL 5 MG TABLET PO PRN (19:00)
[2021-09-22] MEDS ORDERED: LORazepam 2 MG TABLET PO PRN (19:00)
[2021-09-22] MEDS ORDERED: ZOLPIDEM TARTRATE 10 MG TABLET PO PRN (19:00)
[2021-09-23 07:01] LABS: CHOL/HDL RATIO 5.5 (4.2-7.3); CHOLESTEROL 197 mg/dL (131-200); FREE T4 (FREE THYROXINE) 1.08 ng/dL (0.76-1.46); HDL CHOLESTEROL 36 mg/dL (40-60); LDL CHOL (CALC.) 121 mg/dL (0-130); THYROID STIMULATING HORMONE 0.85 uIU/mL (0.36-3.74); TRIGLYCERIDES 202 mg/dL (15-150)
[2021-09-23] MEDS ORDERED: IBUPROFEN 400 MG TABLET PO PRN (12:30)
[2021-09-23] MEDS ORDERED: ALBUTEROL SULFATE HFA 90 MCG/PUFF 8 GM INHALER IH PRN (12:30)
[2021-09-23] MEDS ORDERED: MAGNESIUM HYDROXIDE SUSPENSION 30 ML UDCUP PO PRN (12:30)
[2021-09-23] MEDS ORDERED: CloNIDine HCL 0.1 MG TABLET PO PRN (12:30)
[2021-09-23] MEDS ORDERED: PETROLATUM,WHITE 28 GM JELLY TP PRN (12:30)
[2021-09-23] MEDS ORDERED: DOCUSATE SODIUM 100 MG CAPSULE PO PRN (12:30)
[2021-09-23] MEDS ORDERED: LOPERAMIDE HCL 2 MG CAPSULE PO PRN (12:30)
[2021-09-23] MEDS ORDERED: ONDANSETRON HCL 4 MG TABLET PO PRN (12:30)
[2021-09-23] MEDS ORDERED: NICOTINE 14 MG/24 HOUR PATCH TD PRN (12:30)
[2021-09-23] MEDS ORDERED: GuaiFENesin/D-METHORPHAN [SUGAR-FREE] 200-20MG/10 ML SYRUP UDCUP PO PRN (12:30)
[2021-09-23] MEDS ORDERED: MAG HYDROX/AL HYDROX/SIMETH ES 30 ML SUSPENSION UDCUP PO PRN (12:30)
[2021-09-23] MEDS ORDERED: ACETAMINOPHEN 325 MG TABLET PO PRN (12:30)
[2021-09-23 13:19] LABS: APPEARANCE,URINE CLEAR (CLEAR); BILIRUBIN,URINE NEGATIVE (NEGATIVE); GLUCOSE, URINE (UA) NEGATIVE (NEGATIVE); KETONES,URINE TRACE mg/dL (NEGATIVE); LEUKOCYTE ESTERASE ,URINE NEGATIVE (NEGATIVE); NITRATE,URINE NEGATIVE (NEGATIVE); OCCULT BLOOD,URINE NEGATIVE (NEGATIVE); PROTEIN,URINE POS 1+ (NEGATIVE)
[2021-09-23 13:28] LABS: BACTERIA,URINE None Seen /HPF (None Seen); RBC,URINE None Seen /HPF (0-2); SQUAMOUS EPITHELIAL CELL,UR Few /LPF (None Seen)
[2021-09-23 18:10] VITALS: BP 123/73
[2021-09-23] MEDS ORDERED: MELATONIN 5 MG TABLET PO PRN (19:30)
[2021-09-23] MEDS ORDERED: DiphenhydrAMINE HCL 25 MG CAPSULE PO PRN (19:30)
[2021-09-24 08:00] VITALS: BP 104/64
[2021-09-24] MEDS: TAMSULOSIN HCL 0.4 MG CAPSULE PO SCH (08:20)
[2021-09-24] MEDS: HydrOXYzine PAMOATE 25 MG CAPSULE PO SCH ×3 (11:00→16:18)
[2021-09-24] MEDS: DULoxetine HCL 60 MG CAPSULE PO SCH (12:14)
[2021-09-24 16:34] VITALS: BP 124/76
[2021-09-24] MEDS: QUEtiapine FUMARATE 100 MG TABLET PO SCH (20:25)
[2021-09-24] MEDS: MELATONIN 5 MG TABLET PO SCH (20:25)
[2021-09-25 08:00] VITALS: BP 127/81
[2021-09-25] MEDS: DULoxetine HCL 60 MG CAPSULE PO SCH (08:59)
[2021-09-25] MEDS: MULTIVITAMINS WITH MINERALS, THERAPEUTIC TABLET PO SCH (08:59)
[2021-09-25] MEDS: HydrOXYzine PAMOATE 25 MG CAPSULE PO SCH ×3 (09:00→15:55)
[2021-09-25] MEDS: TAMSULOSIN HCL 0.4 MG CAPSULE PO SCH (09:00)
[2021-09-25 17:42] VITALS: BP 104/56
[2021-09-25] MEDS: QUEtiapine FUMARATE 100 MG TABLET PO SCH (20:20)
[2021-09-25] MEDS: MELATONIN 5 MG TABLET PO SCH (20:20)
[2021-09-26 08:00] VITALS: BP 94/64
[2021-09-26] MEDS: HydrOXYzine PAMOATE 25 MG CAPSULE PO SCH ×2 (09:00→11:18)
[2021-09-26] MEDS: TAMSULOSIN HCL 0.4 MG CAPSULE PO SCH (11:11)
[2021-09-26] MEDS: DULoxetine HCL 60 MG CAPSULE PO SCH (11:11)
[2021-09-26] MEDS: MULTIVITAMINS WITH MINERALS, THERAPEUTIC TABLET PO SCH (11:11)
[2021-09-26] MEDS ORDERED: HydrOXYzine PAMOATE 25 MG CAPSULE PO PRN (13:30)
[2021-09-26 16:35] VITALS: BP 104/55
[2021-09-26] MEDS: MELATONIN 5 MG TABLET PO SCH (20:15)
[2021-09-26] MEDS: QUEtiapine FUMARATE 100 MG TABLET PO SCH (20:15)
[2021-09-27 08:52] VITALS: BP 107/67
[2021-09-27] MEDS: DULoxetine HCL 60 MG CAPSULE PO SCH (10:01)
[2021-09-27] MEDS: MULTIVITAMINS WITH MINERALS, THERAPEUTIC TABLET PO SCH (10:01)
[2021-09-27] MEDS: TAMSULOSIN HCL 0.4 MG CAPSULE PO SCH (10:01)
[2021-09-27 16:00] VITALS: BP 104/64
[2021-09-27] MEDS: QUEtiapine FUMARATE 100 MG TABLET PO SCH (20:44)
[2021-09-27] MEDS: MELATONIN 5 MG TABLET PO SCH (20:44)
[2021-09-28 08:00] VITALS: BP 108/56
[2021-09-28] MEDS: TAMSULOSIN HCL 0.4 MG CAPSULE PO SCH (12:12)
[2021-09-28] MEDS: MULTIVITAMINS WITH MINERALS, THERAPEUTIC TABLET PO SCH (12:12)
[2021-09-28] MEDS: DULoxetine HCL 60 MG CAPSULE PO SCH (12:12)
[2021-09-28 18:04] VITALS: BP 136/81
[2021-09-28] MEDS: QUEtiapine FUMARATE 100 MG TABLET PO SCH (20:45)
[2021-09-28] MEDS: MELATONIN 5 MG TABLET PO SCH (20:45)
[2021-09-29 08:00] VITALS: BP 99/56
[2021-09-29] MEDS: DULoxetine HCL 60 MG CAPSULE PO SCH (10:55)
[2021-09-29] MEDS: TAMSULOSIN HCL 0.4 MG CAPSULE PO SCH (10:56)
[2021-09-29] MEDS: MULTIVITAMINS WITH MINERALS, THERAPEUTIC TABLET PO SCH (10:58)
[2021-09-29 16:45] VITALS: BP 123/85
[2021-09-29] MEDS: QUEtiapine FUMARATE 100 MG TABLET PO SCH (20:43)
[2021-09-29] MEDS: MELATONIN 5 MG TABLET PO SCH (20:43)
[2021-09-30 08:00] VITALS: BP 119/64
[2021-09-30] MEDS: TAMSULOSIN HCL 0.4 MG CAPSULE PO SCH (08:32)
[2021-09-30] MEDS: MULTIVITAMINS WITH MINERALS, THERAPEUTIC TABLET PO SCH (08:32)
[2021-09-30] MEDS: DULoxetine HCL 60 MG CAPSULE PO SCH (08:32)
[2021-09-30 16:19] VITALS: BP 115/79
[2021-09-30 16:25] LABS: COVID AG,FIA SOURCE NASOPHARYNGEAL
[2021-09-30] MEDS: MELATONIN 5 MG TABLET PO SCH (20:26)
[2021-09-30] MEDS: QUEtiapine FUMARATE 100 MG TABLET PO SCH (20:26)
[2021-10-01 08:00] VITALS: BP 108/52
[2021-10-01] MEDS: TAMSULOSIN HCL 0.4 MG CAPSULE PO SCH (08:50)
[2021-10-01] MEDS: MULTIVITAMINS WITH MINERALS, THERAPEUTIC TABLET PO SCH (08:52)
[2021-10-01] MEDS: DULoxetine HCL 60 MG CAPSULE PO SCH (08:52)
[2021-10-01] MEDS ORDERED: QUET100T PO (13:26)
[2021-10-01] MEDS ORDERED: TAMS-13 PO (14:52)
== END 2021-10-01 15:04 | disposition home or self-care (01) | DRG 885 ==
LOC: EMS 08:47 → 3EI 23:14 → UNDOADMIN 23:14 → 3EC 09-23 16:27
PROVIDERS: ADMIT Psychiatry & Neurology Child & Adolescent Psychiatry; ATTEND Psychiatry & Neurology Child & Adolescent Psychiatry
DX: F25.1 Schizoaffective disorder, depressive type (principal); F22 Delusional disorders; G89.29 Other chronic pain; Z20.822 Contact with and (suspected) exposure to COVID-19; N40.0 Benign prostatic hyperplasia without lower urinary tract symptoms; F14.10 Cocaine abuse, uncomplicated; F12.10 Cannabis abuse, uncomplicated; F41.9 Anxiety disorder, unspecified; M54.2 Cervicalgia; Z59.00 Homelessness unspecified; Z85.46 Personal history of malignant neoplasm of prostate; Z79.899 Other long term (current) drug therapy
CPT/HCPCS: 80053; 80061; 81001; 84439; 84443; 85025; 87086; 99285; G0480; Q9967

== ENCOUNTER 2021-10-11 20:20 | Inpatient (IN) | payer MEDICARE, MEDICAID ==
[~2021-10-11] VITALS: Ht 190.5 cm; Wt 89.0 kg
[~2021-10-11 20:20] MED LIST changes: -HYDR-4031 PO; -OMEG-135 PO
[2021-10-11] MEDS ORDERED: IOHEXOL 350 MG/ML 100 ML VIAL ONE (21:20)
[2021-10-11 21:41] LABS: BASOPHILS % (AUTO) 0.4 % (0.0-2.0); EOSINOPHILS % (AUTO) 2.5 % (1.0-6.0); HEMATOCRIT 38.9 % (41-53); LYMPHOCYTES # (AUTO) 1.3 K/uL (1.0-4.8); LYMPHOCYTES % (AUTO) 10.5 % (22.0-44.0); MEAN CORPUSCULAR HEMOGLOBIN 30.1 pg (26.0-34.0); MEAN CORPUSCULAR HGB CONC 33.5 G/dL (31.0-37.0); MEAN CORPUSCULAR VOLUME 90 fL (80-100); MONOCYTES # (AUTO) 0.6 K/uL (0.1-1.0); MONOCYTES % (AUTO) 4.8 % (2.0-9.0); NEUTROPHILS # (AUTO) 10.2 K/uL (1.8-7.7); NEUTROPHILS % (AUTO) 81.8 % (40.0-70.0); PLATELET COUNT (AUTO) 268 K/uL (150-450); RED BLOOD CELL COUNT(AUTO) 4.34 MIL/uL (4.50-5.90); RED CELL DISTRIBUTION WIDTH 14.1 % (11.5-14.5)
[2021-10-11 21:53] LABS: ANION GAP 8 mmol/L (8-16); CALCIUM, TOTAL 8.9 mg/dL (8.8-10.5); CARBON DIOXIDE 27 mmol/L (22-29); CHLORIDE 105 mmol/L (98-107); CREATININE 1.13 mg/dL (0.60-1.30); GLOMERULAR FILTR. RATE CALC > 60 mL/min (>60); GLUCOSE,RANDOM 116 mg/dL (70-110); POTASSIUM 4.2 mmol/L (3.5-5.1); SODIUM SERUM 140 mmol/L (136-145); UREA NITROGEN, BLOOD 14 mg/dL (7-18)
[2021-10-11 21:57] LABS: ALANINE AMINOTRANSFERASE 19 U/L (12-78); ALKALINE PHOSPHATASE 90 U/L (46-116); ASPARTATE AMINOTRANSFERASE 12 U/L (15-37); BILIRUBIN,TOTAL 0.2 mg/dL (0.1-1.0); TOTAL PROTEIN, SERUM 7.1 g/dL (6.4-8.2)
[2021-10-11 22:05] LABS: PROTHROMBIN TIME 10.8 SEC (9.4-11.6)
[2021-10-11] MEDS ORDERED: MORPHINE SULFATE 4 MG/ML SYRINGE IVP ONE (22:15)
[2021-10-11] MEDS ORDERED: ONDANSETRON HCL 4 MG/2 ML VIAL IVP ONE (22:15)
[2021-10-11 23:57] LABS: APPEARANCE,URINE CLEAR (CLEAR); BILIRUBIN,URINE NEGATIVE (NEGATIVE); GLUCOSE, URINE (UA) NEGATIVE (NEGATIVE); KETONES,URINE NEGATIVE (NEGATIVE); LEUKOCYTE ESTERASE ,URINE NEGATIVE (NEGATIVE); NITRATE,URINE NEGATIVE (NEGATIVE); OCCULT BLOOD,URINE NEGATIVE (NEGATIVE); PROTEIN,URINE NEGATIVE (NEGATIVE); UROBILINOGEN,URINE 0.2 mg/dL (<=1.0)
[2021-10-12] MEDS ORDERED: TIMOLOL MALEATE 0.25% 5 ML OPHTHALMIC SOLUTION OU ONE
[2021-10-12 00:02] LABS: AMPHET/METH SCREEN,URINE NEGATIVE (NEGATIVE); BARBITURATE SCREEN, URINE NEGATIVE (NEGATIVE); BENZODIAZEPINES SCREEN,URINE NEGATIVE (NEGATIVE); CANNABINOID SCREEN,URINE NEGATIVE (NEGATIVE); COCAINE SCREEN,URINE NEGATIVE (NEGATIVE); METHADONE SCREEN, URINE NEGATIVE (NEGATIVE); OPIATE SCREEN,URINE NEGATIVE (NEGATIVE)
[2021-10-12 00:07] LABS: PHENCYCLIDINE SCREEN,URINE NEGATIVE (NEGATIVE)
[2021-10-12] MEDS ORDERED: ONDANSETRON HCL 4 MG/2 ML VIAL IVP ONE (00:15)
[2021-10-12] MEDS ORDERED: MORPHINE SULFATE 4 MG/ML SYRINGE IVP ONE (00:15)
[2021-10-12] MEDS ORDERED: AcetaZOLAMIDE SODIUM 500 MG VIAL IVP ONE (00:15)
[2021-10-12] MEDS ORDERED: ONDANSETRON HCL 4 MG/2 ML VIAL IVP PRN (00:15)
[2021-10-12 00:22] LABS: BACTERIA,URINE Rare /HPF (None Seen); RBC,URINE 0-2 /HPF (0-2); WBC,URINE 0-2 /HPF (0-5)
[2021-10-12] MEDS ORDERED: PrednisoLONE ACETATE 1% 5 ML OPHTHALMIC SUSPENSION OU ONE (00:45)
[2021-10-12] MEDS: TIMOLOL MALEATE 0.5% 5 ML OPHTHALMIC SOLUTION OU SCH ×3 (01:11→23:21)
[2021-10-12] MEDS ORDERED: BRIMONIDINE TARTRATE 0.2% 5 ML OPHTHALMIC SOLUTION OU ONE (03:00)
[2021-10-12] MEDS: ACETAMINOPHEN 325 MG TABLET PO PRN (05:26)
[2021-10-12] MEDS ORDERED: ISOSORBIDE DINITRATE 5 MG TABLET PO ONE (05:45)
[2021-10-12] MEDS ORDERED: AcetaZOLAMIDE 250 MG TABLET PO ONE (05:45)
[2021-10-12 06:16] LABS: BASOPHILS % (AUTO) 0.1 % (0.0-2.0); EOSINOPHILS % (AUTO) 0.1 % (1.0-6.0); HEMATOCRIT 38.2 % (41-53); LYMPHOCYTES # (AUTO) 0.7 K/uL (1.0-4.8); LYMPHOCYTES % (AUTO) 5.8 % (22.0-44.0); MEAN CORPUSCULAR HEMOGLOBIN 30.5 pg (26.0-34.0); MEAN CORPUSCULAR VOLUME 90 fL (80-100); MONOCYTES # (AUTO) 0.4 K/uL (0.1-1.0); NEUTROPHILS # (AUTO) 11.1 K/uL (1.8-7.7); PLATELET COUNT (AUTO) 273 K/uL (150-450); RED BLOOD CELL COUNT(AUTO) 4.26 MIL/uL (4.50-5.90); RED CELL DISTRIBUTION WIDTH 13.5 % (11.5-14.5)
[2021-10-12 06:31] LABS: ANION GAP 10 mmol/L (8-16); CALCIUM, TOTAL 8.8 mg/dL (8.8-10.5); CARBON DIOXIDE 25 mmol/L (22-29); CHLORIDE 102 mmol/L (98-107); CREATININE 1.09 mg/dL (0.60-1.30); GLOMERULAR FILTR. RATE CALC > 60 mL/min (>60); GLUCOSE,RANDOM 146 mg/dL (70-110); POTASSIUM 4.4 mmol/L (3.5-5.1); SODIUM SERUM 137 mmol/L (136-145); UREA NITROGEN, BLOOD 12 mg/dL (7-18)
[2021-10-12 06:48] LABS: COVID AG,FIA SOURCE NASAL SWAB
[2021-10-12] MEDS: HEPARIN SODIUM,PORCINE 5,000 UNITS/ML VIAL SQ SCH ×3 (07:16→23:21)
[2021-10-12] MEDS: TAMSULOSIN HCL 0.4 MG CAPSULE PO SCH (09:36)
[2021-10-12] MEDS: DULoxetine HCL 60 MG CAPSULE PO SCH (09:37)
[2021-10-12] MEDS: MORPHINE SULFATE 4 MG/ML SYRINGE IVP PRN ×2 (09:43→15:37)
[2021-10-12] MEDS ORDERED: PILOCARPINE HCL 4% 15 ML OPHTHALMIC SOLUTION OU ONE ×2 (10:00→17:45)
[2021-10-12] MEDS ORDERED: MORPHINE SULFATE 4 MG/ML SYRINGE IM ONE (10:15)
[2021-10-12] MEDS ORDERED: PROPARACAINE HCL 0.5% 15 ML OPHTHALMIC SOLUTION OU ONE ×2 (15:00)
[2021-10-12] MEDS ORDERED: MANNITOL 25%-12.5 GM/50 ML VIAL IVP ONE (15:30)
[2021-10-12 16:11] VITALS: BP 137/75
[2021-10-12 19:27] VITALS: BP 139/65
[2021-10-12] MEDS ORDERED: MORPHINE SULFATE 4 MG/ML SYRINGE IVP PRN (20:15)
[2021-10-12] MEDS: QUEtiapine FUMARATE 100 MG TABLET PO SCH (21:00)
[2021-10-12] MEDS ORDERED: MELATONIN 5 MG TABLET PO SCH (21:00)
[2021-10-12 23:30] VITALS: BP 140/94
[2021-10-13 04:25] VITALS: BP 140/82
[2021-10-13] MEDS: BRIMONIDINE TARTRATE 0.2% 5 ML OPHTHALMIC SOLUTION OU SCH ×3 (08:09→20:12)
[2021-10-13] MEDS: HEPARIN SODIUM,PORCINE 5,000 UNITS/ML VIAL SQ SCH ×2 (08:10→17:00)
[2021-10-13] MEDS: TIMOLOL MALEATE 0.5% 5 ML OPHTHALMIC SOLUTION OU SCH (08:10)
[2021-10-13 08:16] VITALS: BP 138/73
[2021-10-13] MEDS: TAMSULOSIN HCL 0.4 MG CAPSULE PO SCH (08:28)
[2021-10-13] MEDS: DULoxetine HCL 60 MG CAPSULE PO SCH (08:28)
[2021-10-13] MEDS ORDERED: ISOSORBIDE MONONITRATE 20 MG TABLET PO SCH (09:00)
[2021-10-13 09:04] LABS: BASOPHILS % (AUTO) 0.1 % (0.0-2.0); EOSINOPHILS % (AUTO) 0.1 % (1.0-6.0); HEMATOCRIT 39.7 % (41-53); HEMOGLOBIN 13.4 g/dL (13.5-17.5); LYMPHOCYTES # (AUTO) 0.9 K/uL (1.0-4.8); LYMPHOCYTES % (AUTO) 7.1 % (22.0-44.0); MEAN CORPUSCULAR HEMOGLOBIN 30.6 pg (26.0-34.0); MEAN CORPUSCULAR HGB CONC 33.8 G/dL (31.0-37.0); MEAN CORPUSCULAR VOLUME 91 fL (80-100); MONOCYTES # (AUTO) 0.9 K/uL (0.1-1.0); MONOCYTES % (AUTO) 6.9 % (2.0-9.0); NEUTROPHILS # (AUTO) 11.3 K/uL (1.8-7.7); PLATELET COUNT (AUTO) 260 K/uL (150-450); RED BLOOD CELL COUNT(AUTO) 4.38 MIL/uL (4.50-5.90); RED CELL DISTRIBUTION WIDTH 13.7 % (11.5-14.5)
[2021-10-13 09:10] LABS: NEUTROPHILS % (AUTO) 85.8 % (40.0-70.0)
[2021-10-13] MEDS ORDERED: PILOCARPINE HCL 4% 15 ML OPHTHALMIC SOLUTION OU ONE (09:15)
[2021-10-13] MEDS ORDERED: PrednisoLONE ACETATE 1% 5 ML OPHTHALMIC SUSPENSION OU ONE (09:15)
[2021-10-13] MEDS ORDERED: AcetaZOLAMIDE SODIUM 500 MG VIAL IVP ONE (09:15)
[2021-10-13] MEDS ORDERED: AcetaZOLAMIDE 250 MG TABLET PO ONE (09:15)
[2021-10-13 09:16] LABS: ALANINE AMINOTRANSFERASE 14 U/L (12-78); ALBUMIN 3.9 g/dL (3.4-5.0); ALKALINE PHOSPHATASE 84 U/L (46-116); ANION GAP 9 mmol/L (8-16); ASPARTATE AMINOTRANSFERASE 10 U/L (15-37); BILIRUBIN,TOTAL 0.4 mg/dL (0.1-1.0); CALCIUM, TOTAL 8.6 mg/dL (8.8-10.5); CARBON DIOXIDE 24 mmol/L (22-29); CHLORIDE 104 mmol/L (98-107); CREATININE 1.15 mg/dL (0.60-1.30); GLOMERULAR FILTR. RATE CALC > 60 mL/min (>60); GLUCOSE,RANDOM 103 mg/dL (70-110); POTASSIUM 3.8 mmol/L (3.5-5.1); SODIUM SERUM 137 mmol/L (136-145); TOTAL PROTEIN, SERUM 7.1 g/dL (6.4-8.2); UREA NITROGEN, BLOOD 18 mg/dL (7-18)
[2021-10-13] MEDS: HYDROmorphone 2 MG/ML VIAL IVP PRN ×3 (11:12→20:12)
[2021-10-13 11:39] VITALS: BP 142/70
[2021-10-13 15:56] VITALS: BP 130/74
[2021-10-13] MEDS: ACETAMINOPHEN 325 MG TABLET PO PRN (20:03)
[2021-10-13] MEDS: QUEtiapine FUMARATE 100 MG TABLET PO SCH (20:04)
== END 2021-10-13 20:20 | disposition left against medical advice (07) | DRG 125 ==
LOC: EMS 20:21 → 5S 10-12 13:55
PROVIDERS: ADMIT Internal Medicine; ATTEND Internal Medicine
DX: H40.213 Acute angle-closure glaucoma, bilateral (principal); R65.10 Systemic inflammatory response syndrome (SIRS) of non-infectious origin without acute organ dysfunction; Z53.29 Procedure and treatment not carried out because of patient's decision for other reasons; Z20.822 Contact with and (suspected) exposure to COVID-19; F20.9 Schizophrenia, unspecified; H54.7 Unspecified visual loss; I10 Essential (primary) hypertension; I16.0 Hypertensive urgency; N40.0 Benign prostatic hyperplasia without lower urinary tract symptoms; F17.210 Nicotine dependence, cigarettes, uncomplicated; Z71.6 Tobacco abuse counseling; Z91.19 Patient's noncompliance with other medical treatment and regimen
CPT/HCPCS: 70450; 70496; 70498; 71045; 80048; 80053; 81001; 84484; 85025; 85610; 85730; 86850; 86900; 86901; 87081; 92521; 93005; 99285; J1120; J1170; J1644; J2150; J2270; J2405; Q9967; 36415-L1; 36415-TC

== ENCOUNTER 2021-11-08 05:14 | Inpatient (IN) | payer MEDICARE, MEDICAID ==
[~2021-11-08] VITALS: Ht 193 cm; Wt 74.8 kg
[2021-11-08 06:11] LABS: BASOPHILS % (AUTO) 0.2 % (0.0-2.0); EOSINOPHILS % (AUTO) 0.4 % (1.0-6.0); HEMATOCRIT 37.9 % (41-53); HEMOGLOBIN 13.2 g/dL (13.5-17.5); LYMPHOCYTES # (AUTO) 1.4 K/uL (1.0-4.8); LYMPHOCYTES % (AUTO) 17.4 % (22.0-44.0); MEAN CORPUSCULAR HGB CONC 34.9 G/dL (31.0-37.0); MEAN CORPUSCULAR VOLUME 92 fL (80-100); MONOCYTES # (AUTO) 0.8 K/uL (0.1-1.0); MONOCYTES % (AUTO) 9.7 % (2.0-9.0); NEUTROPHILS # (AUTO) 5.9 K/uL (1.8-7.7); NEUTROPHILS % (AUTO) 72.3 % (40.0-70.0); PLATELET COUNT (AUTO) 367 K/uL (150-450); RED BLOOD CELL COUNT(AUTO) 4.13 MIL/uL (4.50-5.90); RED CELL DISTRIBUTION WIDTH 14.6 % (11.5-14.5)
[2021-11-08 06:18] LABS: ANION GAP 9 mmol/L (8-16); CALCIUM, TOTAL 9.4 mg/dL (8.8-10.5); CARBON DIOXIDE 30 mmol/L (22-29); CHLORIDE 103 mmol/L (98-107); CREATININE 1.15 mg/dL (0.60-1.30); GLOMERULAR FILTR. RATE CALC > 60 mL/min (>60); GLUCOSE,RANDOM 101 mg/dL (70-110); POTASSIUM 3.7 mmol/L (3.5-5.1); SODIUM SERUM 142 mmol/L (136-145); UREA NITROGEN, BLOOD 17 mg/dL (7-18)
[2021-11-08 06:24] LABS: ALANINE AMINOTRANSFERASE 14 U/L (12-78); ALBUMIN 4.4 g/dL (3.4-5.0); ALKALINE PHOSPHATASE 85 U/L (46-116); ASPARTATE AMINOTRANSFERASE 17 U/L (15-37); BILIRUBIN,TOTAL 0.6 mg/dL (0.1-1.0); TOTAL PROTEIN, SERUM 7.6 g/dL (6.4-8.2)
[2021-11-08 06:52] LABS: COVID AG,FIA SOURCE NASOPHARYNGEAL
[2021-11-08 11:08] VITALS: BP 132/85
[2021-11-08 11:23] VITALS: BP 102/68
[2021-11-08 12:08] VITALS: BP 116/92
[2021-11-08] MEDS ORDERED: PNEUMOCOCCAL VACCINE POLYVALENT 0.5 ML VIAL [PPSV23] IM. ONE (12:15)
[2021-11-08] MEDS ORDERED: MAGNESIUM HYDROXIDE SUSPENSION 30 ML UDCUP PO PRN (14:15)
[2021-11-08] MEDS ORDERED: OMEPRAZOLE 20 MG CAPSULE PO PRN (14:15)
[2021-11-08] MEDS ORDERED: DOCUSATE SODIUM 100 MG CAPSULE PO PRN (14:15)
[2021-11-08] MEDS ORDERED: CloNIDine HCL 0.1 MG TABLET PO PRN (14:15)
[2021-11-08] MEDS ORDERED: BENZOCAINE/MENTHOL LOZENGE PO PRN (14:15)
[2021-11-08] MEDS ORDERED: BACITRACIN 28 GM OINTMENT TP PRN (14:15)
[2021-11-08] MEDS ORDERED: PETROLATUM,WHITE 28 GM JELLY TP PRN (14:15)
[2021-11-08] MEDS ORDERED: ONDANSETRON HCL 4 MG TABLET PO PRN (14:15)
[2021-11-08] MEDS ORDERED: ALBUTEROL SULFATE HFA 90 MCG/PUFF 8 GM INHALER IH PRN (14:15)
[2021-11-08] MEDS ORDERED: LOPERAMIDE HCL 2 MG CAPSULE PO PRN (14:15)
[2021-11-08] MEDS ORDERED: MAG HYDROX/AL HYDROX/SIMETH ES 30 ML SUSPENSION UDCUP PO PRN (14:15)
[2021-11-08] MEDS: TAMSULOSIN HCL 0.4 MG CAPSULE PO SCH (15:01)
[2021-11-08] MEDS: NICOTINE 21 MG/24 HOUR PATCH TD SCH (15:01)
[2021-11-08 18:15] VITALS: BP 108/67
[2021-11-08] MEDS: IBUPROFEN 600 MG TABLET PO PRN (18:15)
[2021-11-08] MEDS: ZOLPIDEM TARTRATE 10 MG TABLET PO PRN (21:37)
[2021-11-09 07:10] LABS: CHOL/HDL RATIO 4.5 (4.2-7.3)
[2021-11-09] MEDS: IBUPROFEN 600 MG TABLET PO PRN (07:15)
[2021-11-09] MEDS: TAMSULOSIN HCL 0.4 MG CAPSULE PO SCH (08:44)
[2021-11-09] MEDS: NICOTINE 21 MG/24 HOUR PATCH TD SCH (08:45)
[2021-11-09 16:00] VITALS: BP 109/68
[2021-11-09] MEDS: HALOPERIDOL 5 MG TABLET PO PRN (17:04)
[2021-11-09] MEDS: LORazepam 2 MG TABLET PO PRN (17:31)
[2021-11-09] MEDS: ZOLPIDEM TARTRATE 10 MG TABLET PO PRN (20:50)
[2021-11-10] MEDS: NICOTINE 21 MG/24 HOUR PATCH TD SCH (08:13)
[2021-11-10] MEDS: TAMSULOSIN HCL 0.4 MG CAPSULE PO SCH (08:13)
[2021-11-10] MEDS: THIAMINE 100 MG TABLET PO SCH (08:13)
[2021-11-10] MEDS: MULTIVITAMINS WITH MINERALS, THERAPEUTIC TABLET PO SCH (08:13)
[2021-11-10 08:17] VITALS: BP 145/82
[2021-11-10] MEDS: IBUPROFEN 600 MG TABLET PO PRN (08:17)
[2021-11-10 11:51] LABS: MAGNESIUM 1.8 mg/dL (1.80-2.40); PHOSPHORUS 3.6 mg/dL (2.5-4.9)
[2021-11-10] MEDS: LORazepam 2 MG TABLET PO PRN ×2 (13:02→23:21)
[2021-11-10] MEDS: HALOPERIDOL 5 MG TABLET PO PRN (13:04)
[2021-11-10 13:52] VITALS: BP 134/78
[2021-11-10] MEDS: ACETAMINOPHEN 325 MG TABLET PO PRN (13:52)
[2021-11-10 16:00] VITALS: BP 128/78
[2021-11-10] MEDS: ZOLPIDEM TARTRATE 10 MG TABLET PO PRN (20:39)
[2021-11-11] MEDS: THIAMINE 100 MG TABLET PO SCH (08:49)
[2021-11-11] MEDS: NICOTINE 21 MG/24 HOUR PATCH TD SCH (08:49)
[2021-11-11] MEDS: MULTIVITAMINS WITH MINERALS, THERAPEUTIC TABLET PO SCH (08:49)
[2021-11-11] MEDS: TAMSULOSIN HCL 0.4 MG CAPSULE PO SCH (08:49)
[2021-11-11] MEDS: LORazepam 2 MG TABLET PO PRN ×2 (10:08→14:13)
[2021-11-11] MEDS: HALOPERIDOL 5 MG TABLET PO PRN ×2 (10:08→14:12)
[2021-11-11 10:09] VITALS: BP 149/85
[2021-11-11] MEDS: ACETAMINOPHEN 325 MG TABLET PO PRN (10:09)
[2021-11-11] MEDS ORDERED: MELATONIN 5 MG TABLET PO PRN (13:30)
[2021-11-11 16:50] VITALS: BP 155/84
[2021-11-11] MEDS: QUEtiapine FUMARATE 100 MG TABLET PO SCH (20:00)
[2021-11-11] MEDS: ZOLPIDEM TARTRATE 10 MG TABLET PO PRN (20:36)
[2021-11-12] MEDS: THIAMINE 100 MG TABLET PO SCH (08:33)
[2021-11-12] MEDS: MULTIVITAMINS WITH MINERALS, THERAPEUTIC TABLET PO SCH (08:33)
[2021-11-12] MEDS: NICOTINE 21 MG/24 HOUR PATCH TD SCH (08:34)
[2021-11-12] MEDS: DULoxetine HCL 60 MG CAPSULE PO SCH (08:34)
[2021-11-12] MEDS: TAMSULOSIN HCL 0.4 MG CAPSULE PO SCH (08:34)
[2021-11-12] MEDS: ACETAMINOPHEN 325 MG TABLET PO PRN (12:42)
[2021-11-12 12:46] VITALS: BP 120/79
[2021-11-12 13:45] VITALS: BP 126/80
[2021-11-12 16:00] VITALS: BP 114/71
[2021-11-12 16:35] VITALS: BP 114/71
[2021-11-12] MEDS: HALOPERIDOL 5 MG TABLET PO PRN (16:35)
[2021-11-12] MEDS: LORazepam 2 MG TABLET PO PRN (16:35)
[2021-11-12] MEDS: QUEtiapine FUMARATE 100 MG TABLET PO SCH (21:00)
[2021-11-13] MEDS: TAMSULOSIN HCL 0.4 MG CAPSULE PO SCH (08:42)
[2021-11-13] MEDS: DULoxetine HCL 60 MG CAPSULE PO SCH (08:42)
[2021-11-13] MEDS: NICOTINE 21 MG/24 HOUR PATCH TD SCH (08:42)
[2021-11-13] MEDS: THIAMINE 100 MG TABLET PO SCH (08:42)
[2021-11-13] MEDS: MULTIVITAMINS WITH MINERALS, THERAPEUTIC TABLET PO SCH (08:42)
[2021-11-13 12:06] VITALS: BP 94/62
[2021-11-13] MEDS: ACETAMINOPHEN 325 MG TABLET PO PRN (12:06)
[2021-11-13] MEDS: LORazepam 2 MG TABLET PO PRN (13:13)
[2021-11-13] MEDS: HALOPERIDOL 5 MG TABLET PO PRN (13:13)
[2021-11-13] MEDS: CARBOXYMETHYLCELLULOSE SODIUM 0.4 ML OPHTHALMIC SOLUTION [PF] OU PRN ×2 (15:02→19:11)
[2021-11-13] MEDS: QUEtiapine FUMARATE 100 MG TABLET PO SCH (20:35)
[2021-11-13] MEDS: ZOLPIDEM TARTRATE 10 MG TABLET PO PRN (20:35)
[2021-11-14] MEDS: THIAMINE 100 MG TABLET PO SCH (08:13)
[2021-11-14] MEDS: TAMSULOSIN HCL 0.4 MG CAPSULE PO SCH (08:13)
[2021-11-14] MEDS: NICOTINE 21 MG/24 HOUR PATCH TD SCH (08:13)
[2021-11-14] MEDS: MULTIVITAMINS WITH MINERALS, THERAPEUTIC TABLET PO SCH (08:13)
[2021-11-14] MEDS: DULoxetine HCL 60 MG CAPSULE PO SCH (08:13)
[2021-11-14] MEDS: CARBOXYMETHYLCELLULOSE SODIUM 0.4 ML OPHTHALMIC SOLUTION [PF] OU PRN (08:14)
[2021-11-14 09:11] VITALS: BP 98/68
[2021-11-14] MEDS: IBUPROFEN 600 MG TABLET PO PRN (09:11)
[2021-11-14] MEDS ORDERED: DULO60CA45 PO (11:23)
[2021-11-14] MEDS ORDERED: QUET100T34 PO (11:23)
[2021-11-14] MEDS: HALOPERIDOL 5 MG TABLET PO PRN ×2 (12:28→17:09)
[2021-11-14] MEDS: LORazepam 2 MG TABLET PO PRN ×2 (12:28→17:09)
[2021-11-14 16:08] VITALS: BP 117/74
[2021-11-14] MEDS: TIMOLOL MALEATE 0.5% 5 ML OPHTHALMIC SOLUTION OU SCH (17:09)
[2021-11-14] MEDS: QUEtiapine FUMARATE 100 MG TABLET PO SCH (20:47)
[2021-11-15 06:50] LABS: COVID AG,FIA SOURCE NASAL SWAB
[2021-11-15] MEDS: DULoxetine HCL 60 MG CAPSULE PO SCH (08:31)
[2021-11-15] MEDS: NICOTINE 21 MG/24 HOUR PATCH TD SCH (08:31)
[2021-11-15] MEDS: MULTIVITAMINS WITH MINERALS, THERAPEUTIC TABLET PO SCH (08:31)
[2021-11-15] MEDS: TAMSULOSIN HCL 0.4 MG CAPSULE PO SCH (08:31)
[2021-11-15] MEDS: THIAMINE 100 MG TABLET PO SCH (08:31)
[2021-11-15] MEDS: TIMOLOL MALEATE 0.5% 5 ML OPHTHALMIC SOLUTION OU SCH (08:32)
[2021-11-15] MEDS ORDERED: TIMO.5OS OU (11:16)
[2021-11-15 12:49] VITALS: BP 103/69
== END 2021-11-15 14:30 | disposition home or self-care (01) | DRG 885 ==
LOC: EMS 05:16 → UNDOADMIN 10:00 → 3EX 10:00
PROVIDERS: ADMIT Psychiatry & Neurology Psychiatry; ATTEND Psychiatry & Neurology Psychiatry
DX: F25.9 Schizoaffective disorder, unspecified (principal); R45.851 Suicidal ideations; I10 Essential (primary) hypertension; N40.0 Benign prostatic hyperplasia without lower urinary tract symptoms; D64.9 Anemia, unspecified; G47.00 Insomnia, unspecified; K59.00 Constipation, unspecified; Z20.822 Contact with and (suspected) exposure to COVID-19; F19.10 Other psychoactive substance abuse, uncomplicated; Z72.0 Tobacco use; Z83.3 Family history of diabetes mellitus
CPT/HCPCS: 80053; 80061; 83735; 84100; 85025; 87081; 90732; 99285; G0378; G0480; Q9967

== ENCOUNTER 2022-07-30 07:07 | Emergency (ER) | payer MEDICARE, MEDICAID ==
[~2022-07-30] VITALS: Ht 190.5 cm; Wt 79.5 kg
[~2022-07-30 07:07] MED LIST changes: +DULO60CA45 PO; -DULO60CA98 PO; -MELA5TAB40 PO; -QUET100T PO; +QUET100T34 PO; +TIMO5DRO21 OU
[2022-07-30 07:19] VITALS: BP 140/76
[2022-07-30] MEDS ORDERED: GABA-1181 PO (07:30)
[2022-07-30] MEDS ORDERED: METH-812 PO (07:30)
[2022-07-30] MEDS ORDERED: IBUP-2071 PO (07:30)
[2022-07-30] MEDS ORDERED: HYDR-4723 PO (07:30)
[2022-07-30] MEDS ORDERED: KETOROLAC TROMETHAMINE 30 MG/ML VIAL IM ONE (09:15)
[2022-07-30] MEDS ORDERED: IBUP-2070 PO (10:24)
== END 2022-07-30 14:06 | disposition home or self-care (01) ==
LOC: EMS 07:15
DX: G56.03 Carpal tunnel syndrome, bilateral upper limbs (principal); F32.A Depression, unspecified; F17.210 Nicotine dependence, cigarettes, uncomplicated; F14.90 Cocaine use, unspecified, uncomplicated; F12.90 Cannabis use, unspecified, uncomplicated; F15.90 Other stimulant use, unspecified, uncomplicated; Z98.890 Other specified postprocedural states; Z88.8 Allergy status to other drugs, medicaments and biological substances
CPT/HCPCS: 99283; 73110; 29125; J1885

== ENCOUNTER 2025-02-05 04:55 | Inpatient (IN) | payer OTHER, MEDICAID ==
[~2025-02-05] VITALS: Ht 190.5 cm; Wt 77.2 kg
[~2025-02-05 04:55] MED LIST changes: -DULO60CA45 PO; +GABA-1181 PO; +HYDR-4062 PO; +IBUP-1492 PO; +IBUP-1493 PO; +METH-812 PO; -QUET100T34 PO; -TAMS-13 PO; -TIMO5DRO21 OU
[2025-02-05 06:12] LABS: BASOPHILS % (AUTO) 0.2 % (0.0-2.0); EOSINOPHILS % (AUTO) 0.3 % (1.0-6.0); HEMATOCRIT 41.7 % (41-53); HEMOGLOBIN 13.9 g/dL (13.5-17.5); LYMPHOCYTES # (AUTO) 1.2 K/uL (1.0-4.8); LYMPHOCYTES % (AUTO) 14.6 % (22.0-44.0); MEAN CORPUSCULAR HGB CONC 33.4 G/dL (31.0-37.0); MEAN CORPUSCULAR VOLUME 90 fL (80-100); MONOCYTES # (AUTO) 0.7 K/uL (0.1-1.0); MONOCYTES % (AUTO) 8.4 % (2.0-9.0); NEUTROPHILS # (AUTO) 6.3 K/uL (1.8-7.7); NEUTROPHILS % (AUTO) 76.5 % (40.0-70.0); PLATELET COUNT (AUTO) 344 K/uL (150-450); RED BLOOD CELL COUNT(AUTO) 4.64 MIL/uL (4.50-5.90); RED CELL DISTRIBUTION WIDTH 13.6 % (11.5-14.5); WHITE BLOOD COUNT (AUTO) 8.3 K/uL (4.5-11.0)
[2025-02-05 06:18] LABS: COVID AG,FIA SOURCE NASAL SWAB
[2025-02-05 06:24] LABS: ANION GAP 10 mmol/L (8-16); CALCIUM, TOTAL 8.9 mg/dL (8.8-10.5); CARBON DIOXIDE 29 mmol/L (22-29); CHLORIDE 103 mmol/L (98-107); CREATININE 0.95 mg/dL (0.60-1.30); GLOMERULAR FILTR. RATE CALC > 60 mL/min (>60); GLUCOSE,RANDOM 83 mg/dL (70-110); POTASSIUM 3.8 mmol/L (3.5-5.1); SODIUM SERUM 142 mmol/L (136-145); UREA NITROGEN, BLOOD 21 mg/dL (7-18)
[2025-02-05 06:30] LABS: APPEARANCE,URINE CLEAR (CLEAR); BILIRUBIN,URINE NEGATIVE (NEGATIVE); COLOR,URINE YELLOW (YELLOW); GLUCOSE, URINE (UA) NEGATIVE (NEGATIVE); LEUKOCYTE ESTERASE ,URINE NEGATIVE (NEGATIVE); NITRATE,URINE NEGATIVE (NEGATIVE); OCCULT BLOOD,URINE NEGATIVE (NEGATIVE); PROTEIN,URINE 30-70 mg/dL (NEGATIVE); SPECIFIC GRAVITIY, URINE 1.032 (1.003-1.030); UROBILINOGEN,URINE <=1.0 mg/dL (<=1.0)
[2025-02-05 06:31] LABS: CREATINE KINASE, TOTAL ONLY 243 U/L (39-308)
[2025-02-05 06:32] LABS: TROPONIN I-HIGH SENSITIVITY 6 ng/L (<76)
[2025-02-05 06:41] LABS: ALCOHOL, URINE DRUG SCREEN NEGATIVE (NEGATIVE); AMPHET/METH SCREEN,URINE POSITIVE (NEGATIVE); BARBITURATE SCREEN, URINE NEGATIVE (NEGATIVE); BENZODIAZEPINES SCREEN,URINE NEGATIVE (NEGATIVE); CANNABINOID SCREEN,URINE NEGATIVE (NEGATIVE); COCAINE SCREEN,URINE POSITIVE (NEGATIVE); METHADONE SCREEN, URINE NEGATIVE (NEGATIVE); OPIATE SCREEN,URINE NEGATIVE (NEGATIVE); PHENCYCLIDINE SCREEN,URINE NEGATIVE (NEGATIVE)
[2025-02-05 06:42] LABS: SARS-COV2 (COVID) ANTIGEN,FIA Negative (Negative)
[2025-02-05 06:46] LABS: B-TYPE NATRIURETIC PEPTIDE < 5 pg/mL (0-100)
[2025-02-05 06:48] LABS: LIPASE 21 U/L (16-77)
[2025-02-05] MEDS ORDERED: ONDANSETRON HCL 4 MG/2 ML VIAL IVP PRN (11:15)
[2025-02-05] MEDS ORDERED: BISACODYL 10 MG RECTAL RECTAL SUPPOSITORY PR PRN (11:15)
[2025-02-05] MEDS ORDERED: MAGNESIUM HYDROXIDE SUSPENSION 30 ML UDCUP PO PRN (11:15)
[2025-02-05] MEDS ORDERED: QUET50TA24 PO (11:19)
[2025-02-05] MEDS ORDERED: NICO2GUM35 PO (11:19)
[2025-02-05] MEDS ORDERED: SERT-438 PO (11:19)
[2025-02-05] MEDS ORDERED: LAMO25TA36 PO (11:19)
[2025-02-05 12:10] LABS: TROPONIN I-HIGH SENSITIVITY 8 ng/L (<76)
[2025-02-05] MEDS: HEPARIN SODIUM,PORCINE 5,000 UNITS/ML VIAL SQ SCH (15:39)
[2025-02-05] MEDS: ACETAMINOPHEN 325 MG TABLET PO PRN (15:39)
[2025-02-05 16:05] VITALS: BP 117/74; PULSE 85; RESP 18; TEMP 98.4; O2SAT 96
[2025-02-05 18:00] LABS: TROPONIN I-HIGH SENSITIVITY 9 ng/L (<76)
[2025-02-05 19:56] VITALS: BP 113/68; PULSE 66; RESP 18; TEMP 98.6; O2SAT 96
[2025-02-05] MEDS: methocarbamoL 750 MG TABLET PO SCH (20:42)
[2025-02-05] MEDS: ATORVASTATIN CALCIUM 20 MG TABLET PO SCH (20:43)
[2025-02-05] MEDS: DOCUSATE SODIUM 100 MG CAPSULE PO SCH (20:43)
[2025-02-05] MEDS: ZOLPIDEM TARTRATE 5 MG TABLET PO PRN (20:43)
[2025-02-05 23:35] VITALS: BP 120/80; PULSE 58; RESP 19; TEMP 98.1; O2SAT 96
[2025-02-05 23:35] LABS: TROPONIN I-HIGH SENSITIVITY 8 ng/L (<76)
[2025-02-06 04:00] VITALS: BP 113/70; PULSE 60; RESP 16; TEMP 98.1; O2SAT 99
[2025-02-06 06:37] LABS: BASOPHILS % (AUTO) 0.5 % (0.0-2.0); EOSINOPHILS % (AUTO) 1.2 % (1.0-6.0); HEMATOCRIT 41.3 % (41-53); LYMPHOCYTES # (AUTO) 1.7 K/uL (1.0-4.8); LYMPHOCYTES % (AUTO) 33.9 % (22.0-44.0); MEAN CORPUSCULAR HEMOGLOBIN 30.1 pg (26.0-34.0); MEAN CORPUSCULAR HGB CONC 33.8 G/dL (31.0-37.0); MEAN CORPUSCULAR VOLUME 89 fL (80-100); MONOCYTES # (AUTO) 0.6 K/uL (0.1-1.0); MONOCYTES % (AUTO) 11.1 % (2.0-9.0); NEUTROPHILS # (AUTO) 2.7 K/uL (1.8-7.7); NEUTROPHILS % (AUTO) 53.3 % (40.0-70.0); PLATELET COUNT (AUTO) 305 K/uL (150-450); RED BLOOD CELL COUNT(AUTO) 4.64 MIL/uL (4.50-5.90); RED CELL DISTRIBUTION WIDTH 13.5 % (11.5-14.5); WHITE BLOOD COUNT (AUTO) 5.1 K/uL (4.5-11.0)
[2025-02-06 06:43] LABS: ANION GAP 5 mmol/L (8-16); CALCIUM, TOTAL 8.5 mg/dL (8.8-10.5); CARBON DIOXIDE 32 mmol/L (22-29); CHLORIDE 106 mmol/L (98-107); CREATININE 0.88 mg/dL (0.60-1.30); GLOMERULAR FILTR. RATE CALC > 60 mL/min (>60); GLUCOSE,RANDOM 103 mg/dL (70-110); POTASSIUM 3.6 mmol/L (3.5-5.1); SODIUM SERUM 143 mmol/L (136-145); UREA NITROGEN, BLOOD 15 mg/dL (7-18)
[2025-02-06 06:57] LABS: CHOL/HDL RATIO 2.9 (4.2-7.3)
[2025-02-06 08:00] VITALS: BP 102/62; PULSE 64; RESP 18; TEMP 98.4; O2SAT 98
[2025-02-06] MEDS: PANTOPRAZOLE SODIUM 40 MG DR TABLET PO SCH (08:52)
[2025-02-06] MEDS: GABAPENTIN 300 MG CAPSULE PO SCH (08:52)
[2025-02-06] MEDS: ASPIRIN 81 MG CHEWABLE TABLET PO SCH (08:52)
[2025-02-06 12:00] VITALS: BP 105/62; PULSE 62; RESP 20; TEMP 98.1; O2SAT 97
[2025-02-06 15:39] VITALS: BP 107/64; PULSE 65; RESP 16; TEMP 98; O2SAT 99
[2025-02-06] MEDS: SERTRALINE HCL 50 MG TABLET PO SCH (16:03)
[2025-02-06] MEDS: LamoTRIgine 25 MG TABLET PO SCH (16:03)
[2025-02-06 19:54] VITALS: BP 109/69; PULSE 62; RESP 17; TEMP 97.5; O2SAT 98
[2025-02-07 00:12] VITALS: BP 116/77; PULSE 56; RESP 18; TEMP 97.7; O2SAT 98
[2025-02-07 05:10] VITALS: BP 119/67; PULSE 56; RESP 18; TEMP 97.7; O2SAT 99
[2025-02-07 07:56] VITALS: BP 128/61; PULSE 61; RESP 18; TEMP 97; O2SAT 98
[2025-02-07 09:18] LABS: BASOPHILS % (AUTO) 0.4 % (0.0-2.0); HEMATOCRIT 42.9 % (41-53); HEMOGLOBIN 14.1 g/dL (13.5-17.5); LYMPHOCYTES # (AUTO) 1.4 K/uL (1.0-4.8); LYMPHOCYTES % (AUTO) 30.3 % (22.0-44.0); MEAN CORPUSCULAR HEMOGLOBIN 29.7 pg (26.0-34.0); MEAN CORPUSCULAR HGB CONC 32.9 G/dL (31.0-37.0); MEAN CORPUSCULAR VOLUME 90 fL (80-100); MONOCYTES # (AUTO) 0.5 K/uL (0.1-1.0); MONOCYTES % (AUTO) 10.3 % (2.0-9.0); NEUTROPHILS # (AUTO) 2.6 K/uL (1.8-7.7); PLATELET COUNT (AUTO) 286 K/uL (150-450); RED BLOOD CELL COUNT(AUTO) 4.76 MIL/uL (4.50-5.90); RED CELL DISTRIBUTION WIDTH 13.7 % (11.5-14.5); WHITE BLOOD COUNT (AUTO) 4.5 K/uL (4.5-11.0)
[2025-02-07 09:38] LABS: ANION GAP 3 mmol/L (8-16); CALCIUM, TOTAL 8.4 mg/dL (8.8-10.5); CARBON DIOXIDE 33 mmol/L (22-29); CHLORIDE 105 mmol/L (98-107); CREATININE 0.87 mg/dL (0.60-1.30); GLOMERULAR FILTR. RATE CALC > 60 mL/min (>60); GLUCOSE,RANDOM 123 mg/dL (70-110); POTASSIUM 3.7 mmol/L (3.5-5.1); SODIUM SERUM 141 mmol/L (136-145); UREA NITROGEN, BLOOD 12 mg/dL (7-18)
[2025-02-07 11:29] VITALS: BP 107/71; PULSE 63; RESP 18; TEMP 98.2; O2SAT 98
[2025-02-07 15:41] VITALS: BP 132/75; PULSE 64; RESP 18; TEMP 98.6; O2SAT 95
[2025-02-07] MEDS ORDERED: ASPI81TA87 PO (17:13)
[2025-02-07] MEDS ORDERED: ATOR20TA PO (17:14)
== END 2025-02-07 17:25 | DRG 313 ==
LOC: EMS 04:56 → EDH 11:20 → 5S 13:15
PROVIDERS: ADMIT Internal Medicine; ATTEND Internal Medicine
DX: R07.89 Other chest pain (principal); R45.851 Suicidal ideations; G89.29 Other chronic pain; I10 Essential (primary) hypertension; J45.909 Unspecified asthma, uncomplicated; Z20.822 Contact with and (suspected) exposure to COVID-19; F25.1 Schizoaffective disorder, depressive type; M62.838 Other muscle spasm; F15.10 Other stimulant abuse, uncomplicated; M54.9 Dorsalgia, unspecified; F14.10 Cocaine abuse, uncomplicated; Z88.8 Allergy status to other drugs, medicaments and biological substances; Z79.899 Other long term (current) drug therapy; Z87.891 Personal history of nicotine dependence; Z91.51 Personal history of suicidal behavior
CPT/HCPCS: 80048; 80061; 80307; 81003; 82550; 83690; 83880; 84484; 85025; 93005; 93306; 99285; G0480; J1644

== ENCOUNTER 2025-02-07 12:24 | Inpatient (IN) | payer OTHER, MEDICAID ==
[~2025-02-07] VITALS: Ht 190.5 cm; Wt 77.6 kg
[~2025-02-07 12:24] MED LIST changes: -HYDR-4062 PO; -IBUP-1492 PO; -IBUP-1493 PO; +LAMO25TA36 PO; +NICO2GUM35 PO; +QUET50TA24 PO; +SERT-438 PO
[2025-02-07] MEDS ORDERED: haloperidoL 5 MG TABLET PO PRN (16:30)
[2025-02-07] MEDS ORDERED: ASPI81TA87 PO (17:13)
[2025-02-07] MEDS ORDERED: ATOR20TA PO (17:14)
[2025-02-07 20:00] VITALS: BP 110/78; PULSE 83; RESP 16; TEMP 98.4; O2SAT 99
[2025-02-07 21:04] VITALS: BP 109/86; PULSE 89; RESP 16; TEMP 98.4; O2SAT 99
[2025-02-07] MEDS: ZOLPIDEM TARTRATE 10 MG TABLET PO PRN (21:04)
[2025-02-07] MEDS: ACETAMINOPHEN 325 MG TABLET PO PRN (21:04)
[2025-02-07 22:04] VITALS: RESP 17; O2SAT 97
[2025-02-08] MEDS ORDERED: PNEUMOCOCCAL VACCINE POLYVALENT 0.5 ML SYRINGE [PPSV23] IM. ONE (00:30)
[2025-02-08] MEDS ORDERED: ONDANSETRON 4 MG TABLET PO PRN (06:30)
[2025-02-08] MEDS ORDERED: ALBUTEROL SULFATE HFA 90 MCG/PUFF 8 GM INHALER IH PRN (06:30)
[2025-02-08] MEDS ORDERED: PETROLATUM,WHITE 28 GM JELLY TP PRN (06:30)
[2025-02-08] MEDS ORDERED: MAGNESIUM HYDROXIDE SUSPENSION 30 ML UDCUP PO PRN (06:30)
[2025-02-08] MEDS ORDERED: GuaiFENesin/D-METHORPHAN [SUGAR-FREE] 200-20MG/10 ML SYRUP UDCUP PO PRN (06:30)
[2025-02-08] MEDS ORDERED: DOCUSATE SODIUM 100 MG CAPSULE PO PRN (06:30)
[2025-02-08] MEDS ORDERED: MAG HYDROX/ALUMINUM HYD/SIMETH ES 30 ML SUSPENSION UDCUP PO PRN (06:30)
[2025-02-08] MEDS ORDERED: CloNIDine HCL 0.1 MG TABLET PO PRN (06:30)
[2025-02-08] MEDS ORDERED: IBUPROFEN 400 MG TABLET PO PRN (06:30)
[2025-02-08] MEDS ORDERED: ACETAMINOPHEN 325 MG TABLET PO PRN (06:30)
[2025-02-08] MEDS ORDERED: LOPERAMIDE HCL 2 MG CAPSULE PO PRN (06:30)
[2025-02-08 08:27] VITALS: BP 121/77; PULSE 84; RESP 16; TEMP 97.3; O2SAT 98
[2025-02-08] MEDS: ATORVASTATIN CALCIUM 20 MG TABLET PO SCH (09:30)
[2025-02-08] MEDS: ASPIRIN 81 MG DR TABLET PO SCH (09:30)
[2025-02-08] MEDS: LamoTRIgine 25 MG TABLET PO SCH (09:30)
[2025-02-08] MEDS: SERTRALINE HCL 50 MG TABLET PO SCH (09:30)
[2025-02-08] MEDS: methocarbamoL 750 MG TABLET PO SCH (09:30)
[2025-02-08] MEDS: LORazepam 2 MG TABLET PO PRN (10:56)
[2025-02-08] MEDS: NICOTINE 14 MG/24 HOUR PATCH TD PRN (17:54)
[2025-02-08 20:29] VITALS: BP 127/62; PULSE 72; RESP 18; TEMP 98.4; O2SAT 100
[2025-02-09 04:07] LABS: HEPATITIS C AB (EIA) Non Reactive (Non Reactive)
[2025-02-09 08:30] VITALS: BP 106/73; PULSE 77; RESP 17; TEMP 97.3; O2SAT 98
[2025-02-09 08:40] LABS: HEMOGLOBIN A1C 6.2 % (3.8-5.6)
[2025-02-09 08:57] LABS: CHOL/HDL RATIO 3.1 (4.2-7.3); THYROID STIMULATING HORMONE 1.39 uIU/mL (0.36-3.74)
[2025-02-09 21:11] VITALS: BP 108/68; PULSE 65; RESP 16; TEMP 98.1; O2SAT 100
[2025-02-10 12:29] VITALS: BP 124/80; PULSE 77; RESP 17; TEMP 97.2; O2SAT 97
[2025-02-10] MEDS ORDERED: SERT-439 PO (19:45)
[2025-02-10] MEDS ORDERED: ASPI-1444 PO (19:45)
[2025-02-10] MEDS ORDERED: LAMO25TA36 PO (19:45)
[2025-02-10] MEDS ORDERED: ATOR20TA65 PO (19:45)
[2025-02-10] MEDS ORDERED: METH-812 PO (19:45)
[2025-02-10 22:53] VITALS: BP 122/76; PULSE 76; RESP 16; TEMP 98.1; O2SAT 98
[2025-02-11 08:10] VITALS: BP 110/62; PULSE 62; RESP 17; TEMP 97.7; O2SAT 100
== END 2025-02-11 14:30 | disposition home or self-care (01) | DRG 885 ==
LOC: B2S 16:25
PROVIDERS: ADMIT Psychiatry & Neurology Psychiatry; ATTEND Psychiatry & Neurology Psychiatry
PROC: GZHZZZZ Group Psychotherapy (ICD-10-PCS; principal; 2025-02-09)
DX: F25.1 Schizoaffective disorder, depressive type (principal); R45.851 Suicidal ideations; F15.10 Other stimulant abuse, uncomplicated; F14.10 Cocaine abuse, uncomplicated; I10 Essential (primary) hypertension; G89.29 Other chronic pain; M54.9 Dorsalgia, unspecified; E78.5 Hyperlipidemia, unspecified; Z85.46 Personal history of malignant neoplasm of prostate; Z91.51 Personal history of suicidal behavior; Z79.899 Other long term (current) drug therapy; Z88.8 Allergy status to other drugs, medicaments and biological substances
CPT/HCPCS: 80061; 83036; 84443; 86803; 87340; 90732

== ENCOUNTER 2025-04-13 21:00 | Emergency (ER) | payer OTHER ==
[~2025-04-13] VITALS: Ht 190.5 cm; Wt 72.7 kg
[~2025-04-13 21:00] MED LIST changes: +ASPI-1444 PO; +ATOR20TA65 PO; -GABA-1181 PO; -NICO2GUM35 PO; -QUET50TA24 PO; -SERT-438 PO; +SERT-439 PO
[2025-04-13 21:48] LABS: PLATELET COUNT (AUTO) 277 K/uL (150-450); RED BLOOD CELL COUNT(AUTO) 4.58 MIL/uL (4.50-5.90); RED CELL DISTRIBUTION WIDTH 14.2 % (11.5-14.5); WHITE BLOOD COUNT (AUTO) 10.2 K/uL (4.5-11.0)
[2025-04-13 21:50] LABS: APPEARANCE,URINE HAZY (CLEAR); GLUCOSE, URINE (UA) NEGATIVE (NEGATIVE); LEUKOCYTE ESTERASE ,URINE MODERATE (NEGATIVE); NITRATE,URINE NEGATIVE (NEGATIVE); OCCULT BLOOD,URINE NEGATIVE (NEGATIVE); PH,URINE DRUG SCREEN 7.0 (5.0-8.0); SPECIFIC GRAVITIY, URINE 1.021 (1.003-1.030)
[2025-04-13 21:56] LABS: ALCOHOL, URINE DRUG SCREEN NEGATIVE (NEGATIVE); AMPHET/METH SCREEN,URINE NEGATIVE (NEGATIVE); BARBITURATE SCREEN, URINE NEGATIVE (NEGATIVE); CANNABINOID SCREEN,URINE NEGATIVE (NEGATIVE); COCAINE SCREEN,URINE NEGATIVE (NEGATIVE); METHADONE SCREEN, URINE NEGATIVE (NEGATIVE)
[2025-04-13 22:05] LABS: SQUAMOUS EPITHELIAL CELL,UR Few /LPF (None Seen)
[2025-04-13 22:05] LABS: CALCIUM, TOTAL 9.5 mg/dL (8.8-10.5); CREATININE 1.09 mg/dL (0.60-1.30); GLOMERULAR FILTR. RATE CALC > 60 mL/min (>60); GLUCOSE,RANDOM 93 mg/dL (70-110); SODIUM SERUM 144 mmol/L (136-145); UREA NITROGEN, BLOOD 22 mg/dL (7-18)
[2025-04-13 22:06] LABS: AMORPHOUS SEDIMENT,UR Few /LPF (None Seen)
[2025-04-14 02:13] LABS: COVID AG,FIA SOURCE NASAL SWAB
[2025-04-14 02:24] LABS: SARS-COV2 (COVID) ANTIGEN,FIA Negative (Negative)
[2025-04-14] MEDS: CEPHALEXIN MONOHYDRATE 500 MG CAPSULE PO ONE (06:11)
[2025-04-14 15:33] VITALS: TEMP 98.1
[2025-04-14 17:42] VITALS: BP 111/74; PULSE 71; RESP 18; O2SAT 100
== END 2025-04-14 20:37 ==
LOC: EMS 21:02
DX: F20.9 Schizophrenia, unspecified (principal); F32.9 Major depressive disorder, single episode, unspecified; N39.0 Urinary tract infection, site not specified; I10 Essential (primary) hypertension; J45.909 Unspecified asthma, uncomplicated; F32.A Depression, unspecified; F12.90 Cannabis use, unspecified, uncomplicated; F15.90 Other stimulant use, unspecified, uncomplicated; F14.90 Cocaine use, unspecified, uncomplicated; F11.90 Opioid use, unspecified, uncomplicated; Z79.82 Long term (current) use of aspirin; Z79.899 Other long term (current) drug therapy; Z87.891 Personal history of nicotine dependence; Z20.822 Contact with and (suspected) exposure to COVID-19
CPT/HCPCS: 99285; 87426; 80048; 81001; 85025; 87086; 36415; 80307; G0480

== ENCOUNTER 2025-04-22 14:01 | Emergency (ER) | payer OTHER ==
[~2025-04-22] VITALS: Ht 190.5 cm; Wt 74.1 kg
[2025-04-22 14:08] VITALS: TEMP 98.3
[2025-04-22 14:24] LABS: PLATELET COUNT (AUTO) 322 K/uL (150-450); RED BLOOD CELL COUNT(AUTO) 4.53 MIL/uL (4.50-5.90); RED CELL DISTRIBUTION WIDTH 14.2 % (11.5-14.5); WHITE BLOOD COUNT (AUTO) 12.6 K/uL (4.5-11.0)
[2025-04-22] MEDS: LORazepam 2 MG/ML VIAL IVP ONE (14:27)
[2025-04-22] MEDS: NITROGLYCERIN 2% (1 GM=INCH) OINTMENT PACKET TP ONE (14:27)
[2025-04-22 14:33] LABS: CALCIUM, TOTAL 9.5 mg/dL (8.8-10.5); CREATININE 1.08 mg/dL (0.60-1.30); GLOMERULAR FILTR. RATE CALC > 60 mL/min (>60); GLUCOSE,RANDOM 152 mg/dL (70-110); SODIUM SERUM 140 mmol/L (136-145); UREA NITROGEN, BLOOD 24 mg/dL (7-18)
[2025-04-22 14:38] LABS: CREATINE KINASE, TOTAL ONLY 354 U/L (39-308)
[2025-04-22 14:41] LABS: TROPONIN I-HIGH SENSITIVITY 9 ng/L (<76)
[2025-04-22 16:33] VITALS: BP 122/82; PULSE 87; RESP 22; O2SAT 96
[2025-04-25] MEDS ORDERED: QUET100T34 PO (11:17)
[2025-04-25] MEDS ORDERED: GABA-1181 PO (11:17)
[2025-04-25] MEDS ORDERED: NITR0.4T50 SL (11:17)
[2025-04-25] MEDS ORDERED: LURA20TA2 PO (11:17)
== END 2025-04-22 16:34 | disposition short-term general hospital (02) ==
LOC: EMS 14:01
DX: R07.89 Other chest pain (principal); F19.10 Other psychoactive substance abuse, uncomplicated; E87.6 Hypokalemia; J45.909 Unspecified asthma, uncomplicated; I10 Essential (primary) hypertension; F32.A Depression, unspecified; F20.9 Schizophrenia, unspecified; F12.90 Cannabis use, unspecified, uncomplicated; F11.90 Opioid use, unspecified, uncomplicated; F14.90 Cocaine use, unspecified, uncomplicated; F15.90 Other stimulant use, unspecified, uncomplicated; Z87.891 Personal history of nicotine dependence; Z98.890 Other specified postprocedural states; Z79.82 Long term (current) use of aspirin; Z79.899 Other long term (current) drug therapy
CPT/HCPCS: 99291; 96374; 80048; 82550; 83880; 84484; 85025; 85610; 85730; 36415; 71045; 93005; J2060